=== PATIENT | female | born 1940 | race Caucasian/White ===

== ENCOUNTER 2016-03-11 17:58 | Emergency (ER) | payer MEDICARE ==
[2016-03-11] MEDS ORDERED: cefTRIAXone 1 GM VIAL IM STA (19:15)
[2016-03-11] MEDS ORDERED: LIDOCAINE-MPF 1% 5 ML VIAL ONE (19:28)
[2016-03-11] MEDS ORDERED: cefTRIAXone 1 GM VIAL ONE (19:28)
== END 2016-03-11 20:11 | disposition home or self-care (01) ==
DX: N30.01 Acute cystitis with hematuria (principal); K59.00 Constipation, unspecified; Z79.82 Long term (current) use of aspirin; Z87.891 Personal history of nicotine dependence

== ENCOUNTER 2016-08-31 12:38 | Outpatient (CLI) | payer MEDICARE ==
--- NOTE | 2016-08-31 14:23 | MRI Report ---
EXAM: MRI LUMBAR SPINE WITHOUT CONTRAST EXAM DATE: 08/31/2016 01:22 PM. CLINICAL HISTORY: Fecal incontinence and fecal smearing, low back pain. COMPARISON: MRI of the lumbar spine 11/03/2007. TECHNIQUE: Multiplanar, multisequence T1-weighted and fluid-sensitive sequences of the lumbar spine f rom T12 to S1 without contrast. Other: None. FINDINGS: Spinal Cord: The conus terminates at T12-L1. The conus medullaris and cauda equina are unremarkable. Alignment: Normal. No scoliosis or spondylolisthesis. Bone Marrow: Five [id number] lumbar vertebral bodies are assumed. There is an old moderate, 50%, compression fracture of the T12 superior endplate. Associated superior endplate Schmorl's node formation is seen. No bone marrow or paraspinous edema is seen. This is new compared to the prior MRI. Mild, 2 mm, retropulsion of the T12 superior endplate is seen. No underlyi ng canal stenosis. Disk Levels/Facets: T11-T12: Evaluated on sagittal series. Minimal broad-based dorsal protrusion of the T12 superior endp late is seen without extrusion. Effacement of the ventral thecal sac is noted. No stenosis. T12-L1: Unremarkable on sagittal series. L1-L2: Unremarkable on sagittal series. L2-L3: Unremarkable. Mild degenerative facet changes noted with thickening of the ligamentum flavum. Minimal circumferential disk bulge is seen. This has progressed compared to prior MRI. L3-L4: Mild degenerative facet changes seen with thickening of the ligamentum flavum. Minimal circumf erential disk bulge is seen. Effacement of the thecal sac is noted, most prominent dorsally. Mild sherrill tral canal stenosis is seen. This has progressed compared to the prior MRI. L4-L5: Mild degenerative facet changes seen with thickening of the ligamentum flavum. This is unchang ed. Moderate loss of disk space height is seen. Patchy diskogenic endplate irregularity is noted. Sma ll old L4 inferior endplate Schmorl's node formation is seen. This has progressed compared to the ashley or study. Mild circumferential disk bulge is seen. Tiny central dorsal disk protrusion is seen. Disk protrusion is smaller compared to prior study. Effacement of the thecal sac and descending L5 nerve r oots is seen. Mild canal stenosis. Moderate right lateral recess stenosis. Mild left lateral recess s tenosis. L5-S1: Moderate loss of disk space height is seen. Minimal dorsal with mild lateral and ventral circu mferential bulge of disk/osteophyte complex is seen. Tiny left paracentral disk protrusion is seen. M inimal effacement and posterior displacement of the descending left S1 nerve root is seen. This is no t significantly changed. Musculature: Mild fatty atrophy of posterior paraspinous musculature is seen in the lower lumbar and upper sacral region. Other: The partially visualized retroperitoneum is unremarkable. IMPRESSION: 1. Old moderate compression fracture of the T12 vertebral body superior endplate. This is new compare d to the prior MRI. Minimal retropulsion of the superior endplate is seen. No underlying canal stenos is is seen. 2. Spondylosis throughout the mid and lower lumbar spine. 3. L2-L3: Mild degenerative disk and facet change. No stenosis. 4. L3-L4: Mild degenerative disk and facet change. Mild canal stenosis. This has progressed. 5. L4-L5: Mild to moderate degenerative disk and facet change. Small central dorsal disk protrusion. Interval resolution of previously noted left paracentral disk protrusion. Mild canal stenosis, improv ed. Right moderate lateral recess stenosis, not significantly changed. Mild left lateral recess steno sis, improved. 6. L5-S1: Moderate degenerative disk change. Minimal effacement of the descending left S1 nerve root is seen without stenosis. This is unchanged. Comment: The following findings are so common in adults without low back pain that while we report th eir presence, they must be interpreted with caution and in the context of the clinical situation. (Re maynor Arellano et al, Spine 2001) Prevalence of findings in patients without low back pain: Disk degeneration (any evidence): 92% Disk desiccation/T2 signal loss: 83% Disk height loss: 56% Disk bulge: 64% Disk protrusion: 32% Annular tear/high intensity zone: 38% [facility] Referring Provider Line: [phone] SITE ID: [id number]
== END 2016-08-31 12:39 | disposition home or self-care (01) ==
LOC: DI 12:38
PROVIDERS: ATTEND Family Medicine
DX: M47.896 Other spondylosis, lumbar region (principal); M51.36 Other intervertebral disc degeneration, lumbar region; M51.26 Other intervertebral disc displacement, lumbar region; M51.27 Other intervertebral disc displacement, lumbosacral region
CPT/HCPCS: 72148

== ENCOUNTER 2016-09-21 11:33 | Outpatient (CLI) | payer MEDICARE | END 2016-09-21 11:34 | disposition critical access hospital (66) | LOC: EMS 11:33 | PROVIDERS: ATTEND Surgery | DX: R00.2 Palpitations (principal); R42 Dizziness and giddiness | CPT/HCPCS: A0425; A0429 ==

== ENCOUNTER 2016-09-21 11:53 | Emergency (ER) | payer MEDICARE ==
[2016-09-21 12:48] LABS: BILIRUBIN,URINE NEGATIVE (NEGATIVE); PH,URINE 7.5 PH (5.0-7.5)
[2016-09-21 12:51] LABS: UA CHARGE (STRIP ONLY) YES; UR CULTURE IF IND NOT INDICATED
--- NOTE | 2016-09-21 12:53 | ED Physician Documentation ---
PD HPI CHEST PAIN - Stated complaint Stated Complaint: SOA - Chief complaint Chief Complaint: Cardiac - History obtained from History obtained from: Patient - History of Present Illness Timing - onset: Other (75-year-old woman with chronic intermittent palpitations , she was going to her doctor today for chronic constipation and on the way there felt fast heartbeat in her throat and became presyncopal. When this was relayed at her doctor's office she was referred here for further evaluation and treatment. This happens every couple of months and she has had 2 Holter monitors which were negative per her and an echocardiogram in another state that was negative per her. There is no associated chest pain. 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 - Present Medications Home Medications: Ambulatory Orders Medication Instructions Recorded Confirmed LORazepam [Ativan] 0.5 mg PO BID PRN 07/27/14 09/21/16 Vit A/Vit C/Vit E/Zinc/Copper 1 cap PO BID 07/27/14 09/21/16 [Preservision Areds Softgel] Bupropion HCl [Wellbutrin Sr] 200 mg PO BID 02/20/15 09/21/16 Cholecalciferol (Vitamin D3) 1,000 unit PO DAILY 02/20/15 09/21/16 [Vitamin D3] Cyanocobalamin (Vitamin B-12) 1,000 mcg PO DAILY 02/20/15 09/21/16 [B-12] Krill/Om-3/Dha/Epa/Phospho/Ast 1 cap PO DAILY 02/20/15 09/21/16 [Krill Oil 1,000 mg Softgel] - Allergies Allergies/Adverse Reactions: Allergies Allergy/AdvReac Type Severity Reaction Status Date / Time fluoxetine HCl * AdvReac Unknown Verified 09/21/16 11:58 [From Prozac] mirtazapine [From Remeron] AdvReac Unknown Verified 09/21/16 11:58 - Social History Does the pt smoke?: No Smoking Status: Former smoker Does the pt drink ETOH?: Yes Does the pt have substance abuse?: No PD ED PE NORMAL - Vitals Vital signs reviewed: Yes - General General: Alert and oriented X 3, No acute distress - Neck Neck: Supple, no meningeal sign, No bony TTP - Cardiac Cardiac: RRR, No murmur - Respiratory Respiratory: No respiratory distress, Clear bilaterally - Abdomen Abdomen: Non tender - Extremities Extremities: No edema, No calf tenderness / cord - Neuro Neuro: Alert and oriented X 3, Normal speech - Psych Psych: Normal mood, Normal affect Results - Vitals Vitals: Vital Signs - 24 hr 09/21/16 11:54 Temperature 36.5 C Heart Rate 79 Respiratory 16 Rate Blood Pressure 167/89 H O2 Saturation 98 Oxygen O2 Source Room air - EKG (time done) 1205 Rate: Rate (enter#) (73) Rhythm: NSR Intervals: Prolonged DC QRS: Low voltage Ischemia: Normal ST segments - Labs Labs: Laboratory Tests 09/21/16 09/21/16 09/21/16 12:40 12:45 12:45 WBC 4.8 RBC 3.70 L Hgb 12.6 Hct 36.1 L MCV 97.6 MCH 34.0 H MCHC 34.8 RDW 13.7 Plt Count 241 MPV 7.5 L Neut # 3.1 Lymph # 1.0 L [place] # 0.5 Eos # 0.1 Baso # 0.0 Absolute Nucleated RBC 0.00 Nucleated RBCs 0.0 Sodium 137 Potassium 4.2 Chloride 102 Carbon Dioxide 27 Anion Gap 8.0 BUN 14 Creatinine 0.8 Estimated GFR (MDRD) 70 L Glucose 83 Calcium 9.4 Magnesium 2.3 Troponin I Urine Color YELLOW Urine Clarity CLEAR Urine pH 7.5 Ur Specific [place] <=1.005 Urine Protein NEGATIVE Urine Glucose (UA) NEGATIVE Urine Ketones NEGATIVE Urine Occult Blood NEGATIVE Urine Nitrite NEGATIVE Urine Bilirubin NEGATIVE Urine Urobilinogen 0.2 (NORMAL) Ur Leukocyte Esterase NEGATIVE Ur Microscopic Review NOT INDICATED Urine Culture Comments NOT INDICATED 09/21/16 12:45 WBC RBC Hgb Hct MCV MCH MCHC RDW Plt Count MPV Neut # Lymph # [place] # Eos # Baso # Absolute Nucleated RBC Nucleated RBCs Sodium Potassium Chloride Carbon Dioxide Anion Gap BUN Creatinine Estimated GFR (MDRD) Glucose Calcium Magnesium Troponin I < 0.04 Urine Color Urine Clarity Urine pH Ur Specific [place] Urine Protein Urine Glucose (UA) Urine Ketones Urine Occult Blood Urine Nitrite Urine Bilirubin Urine Urobilinogen Ur Leukocyte Esterase Ur Microscopic Review Urine Culture Comments PD MEDICAL DECISION MAKING - ED course ED course: 75-year-old woman with a exacerbation of chronic palpitations with negative workup here. Follow-up with cardiology was advised. Departure - Departure Disposition: 01 Home, Self Care Clinical Impression: Palpitations Condition: Good Record reviewed to determine appropriate education?: Yes Instructions: Heart Palpitations Comments: Discuss follow-up With a train control electronic technician with your primary care physician. Return if worse. Your blood pressure was elevated today on check into the emergency department. This does not mean that you have hypertension, it is a common phenomenon to come to the emergency department and have elevated blood pressure. I recommend that she see her primary care physician within the week to have it rechecked when you are feeling better.
[2016-09-21 12:54] LABS: BASOPHILS % (AUTO) 0.5 %; EOSINOPHILS # (AUTO) 0.1 10^3/uL (0.0-0.7); EOSINOPHILS % (AUTO) 2.2 %; HCT - HEMATOCRIT 36.1 % (37.0-47.0); HGB - HEMOGLOBIN 12.6 g/dL (12.0-16.0); LYMPHOCYTES % (AUTO) 21.6 %; MEAN CORPUSCULAR HGB CONC 34.8 g/dL (32.0-36.0); MEAN CORPUSCULAR VOLUME 97.6 fL (81.0-99.0); MEAN PLATELET VOLUME 7.5 fL (7.9-10.8); MONOCYTES # (AUTO) 0.5 10^3/uL (0.0-1.0); MONOCYTES % (AUTO) 10.7 %; NEUTROPHILS # (AUTO) 3.1 10^3/uL (1.5-6.6); RED CELL DISTRIBUTION WIDTH 13.7 % (12.0-15.0); UNCORRECTED WHITE BLOOD COUNT 4.8 x10^3/uL; WHITE BLOOD COUNT 4.8 x10^3/uL (4.8-10.8)
[2016-09-21 13:02] LABS: CALCIUM 9.4 mg/dL (8.5-10.3); CREATININE 0.8 mg/dL (0.4-1.0); MAGNESIUM 2.3 mg/dL (1.7-2.8); POTASSIUM 4.2 mmol/L (3.5-5.0)
[2016-09-21 13:34] VITALS: BP 158/75
== END 2016-09-21 14:05 | disposition home or self-care (01) ==
LOC: EDUNIT# → ED 11:53
DX: R00.2 Palpitations (principal); R03.0 Elevated blood-pressure reading, without diagnosis of hypertension; J45.909 Unspecified asthma, uncomplicated; K21.9 Gastro-esophageal reflux disease without esophagitis; M19.90 Unspecified osteoarthritis, unspecified site; Z87.891 Personal history of nicotine dependence
CPT/HCPCS: 36415; 80048; 81001; 81003; 83735; 84484; 85025; 87086; 93005; 99283; 99284

== ENCOUNTER 2016-10-08 10:05 | Outpatient (CLI) | payer MEDICARE ==
--- NOTE | 2016-10-08 13:13 | DEXA Report ---
DEXA SCAN, 10/08/2016 CLINICAL INDICATION: Postmenopausal. TECHNIQUE: Dual energy x-ray absorptiometry (DXA) was performed on a [employer] system. Regions measured are the AP spine, femoral neck, and, if needed, forearm. COMPARISON: None. In accordance with the International Society for Clinical Densitometry (ISCD) guidelines, data from previous exams may be reanalyzed using current recommendations and techniques. This is done to allow a more accurate basis for comparison with the current study. FINDINGS: The data for the lumbar spine is as follows: REGION BMD (g/cm/cm) T-SCORE Z-SCORE L1 0.704 -3.5 -1.2 L2 0.828 -3.1 -0.7 L3 0.889 -2.6 -0.2 L4 0.983 -1.8 0.6 TOTAL 0.865 -2.6 -0.3 NOTE: All evaluable vertebrae are used for classification. The data for the hip is as follows: REGION BMD (g/cm/cm) T-SCORE Z-SCORE Neck 0.747 -2.1 0.3 TOTAL 0.665 -2.7 -0.4 NOTE: The femoral neck or total proximal femur, whichever is lowest, is used for classification. IMPRESSION: THE WHO CLASSIFICATION BASED ON THE INTERNATIONAL REFERENCE STANDARD IS OSTEOPOROSIS. THE FRACTURE RISK IS HIGH. RECOMMENDATION: Patients with diagnosis of osteoporosis or osteopenia should have regular bone mineral density assessment. For those eligible for Medicare, routine testing is allowed once every 2 years. Testing frequency can be increased for patients who have rapidly progressing disease or for those who are receiving medical therapy to restore bone mass. COMMENT: World Health Organization (WHO) definitions for osteoporosis and osteopenia: NORMAL BMD: T-score at -1.0 or higher, fracture risk is low. OSTEOPENIA BMD: T-score between -1.0 and -2.5, fracture risk is increased. OSTEOPOROSIS BMD: T-score at -2.5 or lower, fracture risk high. National Osteoporosis Foundation recommends: 1. Obtain adequate dietary calcium (at least 1200 mg per day) and vitamin D (400 -800 international units per day). 2. Participate, as appropriate, in regular weightbearing and muscle- strengthening exercise. 3. Avoid tobacco use and reduce alcohol and caffeine intake. 4. For more detailed information see the website at www.NOF.org. MTDD
== END 2016-10-08 10:06 | disposition home or self-care (01) ==
LOC: DI 10:05
PROVIDERS: ATTEND Family Medicine
DX: Z78.0 Asymptomatic menopausal state (principal); M81.0 Age-related osteoporosis without current pathological fracture
CPT/HCPCS: 77080

== ENCOUNTER 2016-11-04 11:15 | Outpatient (CLI) | payer MEDICARE | END 2016-11-04 11:16 | disposition home or self-care (01) | LOC: LAB.WCP 11:15 | PROVIDERS: ATTEND Family Medicine | DX: R31.9 Hematuria, unspecified (principal) | CPT/HCPCS: 87086 ==

== ENCOUNTER 2017-10-25 12:37 | Emergency (ER) | payer MEDICARE ==
[2017-10-25 12:58] VITALS: BP 148/78
--- NOTE | 2017-10-25 14:17 | ED Physician Documentation ---
PD HPI HEADACHE - Stated complaint Stated Complaint: HEADACHE - Chief complaint Chief Complaint: Neuro - History obtained from History obtained from: Patient - History of Present Illness Timing - onset: How many months ago (had fall with striking left top of head a month ago. Intermittent headaches since. Worse last night/early this morning.) Timing - onset during: Rest, Light activity Timing - details: Abrupt onset Worst headache ever?: No: Worst headache ever? Quality: Throbbing, Aching Associated symptoms: Nausea. No: Fever, Stiff neck, Vomiting, Weakness, Vision changes Worsened by: Other (palpation) Review of Systems Constitutional: denies: Fever, Chills Nose: denies: Rhinorrhea / runny nose, Congestion Throat: denies: Sore throat Cardiac: denies: Chest pain / pressure Respiratory: denies: Dyspnea, Cough GI: reports: Nausea. 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 - Present Medications Home Medications: Ambulatory Orders Medication Instructions Recorded Confirmed LORazepam [Ativan] 0.5 mg PO BID PRN 07/27/14 10/25/17 Vit A/Vit C/Vit E/Zinc/Copper 1 cap PO BID 07/27/14 10/25/17 [Preservision Areds Softgel] Bupropion HCl [Wellbutrin Sr] 200 mg PO BID 02/20/15 10/25/17 Cholecalciferol (Vitamin D3) 1,000 unit PO DAILY 02/20/15 10/25/17 [Vitamin D3] Cyanocobalamin (Vitamin B-12) 1,000 mcg PO DAILY 02/20/15 10/25/17 [B-12] Krill/Om-3/Dha/Epa/Phospho/Ast 1 cap PO DAILY 02/20/15 10/25/17 [Krill Oil 1,000 mg Softgel] Dexamethasone [Decadron] 4 mg PO DAILY #7 tablet 10/25/17 Tramadol HCl 50 mg PO Q6H PRN #15 tablet 10/25/17 - Allergies Allergies/Adverse Reactions: Allergies Allergy/AdvReac Type Severity Reaction Status Date / Time fluoxetine HCl * AdvReac Unknown Verified 10/25/17 12:58 [From Prozac] mirtazapine [From Remeron] AdvReac Unknown Verified 10/25/17 12:58 - Social History Does the pt smoke?: No Smoking Status: Former smoker Does the pt drink ETOH?: Yes Does the pt have substance abuse?: No PD ED PE NORMAL - Vitals Vital signs reviewed: Yes - General General: Alert and oriented X 3, No acute distress, Well developed/nourished - HEENT HEENT: Atraumatic (there is small area of some scar tissue and firmness at left upper occi), PERRL, EOMI, Pharynx benign - Neck Neck: Supple, no meningeal sign, No bony TTP, No adenopathy - Cardiac Cardiac: RRR, No murmur - Respiratory Respiratory: Clear bilaterally - Abdomen Abdomen: Normal bowel sounds, Soft, Non tender, Non distended - Female Female : Deferred - Rectal Rectal: Deferred - Back Back: No CVA TTP - Derm Derm: Normal color, Warm and dry - Extremities Extremities: No tenderness to palpate, Normal ROM s pain, No edema, No calf tenderness / cord - Neuro Neuro: Alert and oriented X 3, No motor deficit, Normal speech Results - Vitals Vitals: Vital Signs - 24 hr 10/25/17 12:53 Temperature 36.8 C Heart Rate 76 Respiratory 16 Rate Blood Pressure 148/78 H O2 Saturation 99 Oxygen O2 Source Room air - Rads (name of study) head CT Radiology: Prelim report reviewed (no acute ICH. ) PD MEDICAL DECISION MAKING - ED course Complexity details: reviewed results (head CT normal), re-evaluated patient, considered differential (has had some intermittent headaches since injury month ago. 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.), d/w patient - Sepsis Event Vital Signs: Vital Signs - 24 hr 10/25/17 12:53 Temperature 36.8 C Heart Rate 76 Respiratory 16 Rate Blood Pressure 148/78 H O2 Saturation 99 Oxygen O2 Source Room air Departure - Departure Disposition: 01 Home, Self Care Clinical Impression: Post-concussion headache Condition: Stable Record reviewed to determine appropriate education?: Yes Instructions: ED Cephalgia Unspecified Follow-Up: Jose F Townsend DO [Primary Care Provider] - Prescriptions: Dexamethasone [Decadron] 4 mg PO DAILY #7 tablet Tramadol HCl 50 mg PO Q6H PRN #15 tablet PRN Reason: Pain Comments: Your head CT appears normal without any signs of bleeding, tumors, swelling. One can be getting headaches after head injury for a while. Continue the Tylenol 2-3 times a day if needed for headaches. We can try some anti- inflammatories to see if that helps. Decadron daily for the next week. Add Tramadol if needed for worse headache. Follow-up with your primary care in the next several days to week. Call for an appointment. Discharge Date/Time: 10/25/17 16:25
--- NOTE | 2017-10-25 15:25 | CT Report ---
Procedure Date: 10/25/2017 Accession Number: [id number] / [id number] Procedure: CT - Head W/O CPT Code: FULL RESULT: EXAM: CT HEAD EXAM DATE: 10/25/2017 03:03 PM. CLINICAL HISTORY: Increased headache last night; head injury early September. Intermittent left-sided headache since trauma. COMPARISON: 08/19/2008. TECHNIQUE: Multiaxial CT images were obtained from the foramen magnum to the vertex. Reformats: Coronal. IV contrast: None. In accordance with CT protocol optimization, one or more of the following dose reduction techniques were utilized for this exam: automated exposure control, adjustment of mA and/or KV based on patient size, or use of iterative reconstructive technique. FINDINGS: Parenchyma: No intraparenchymal hemorrhage. No evidence of mass, midline shift, or CT findings of acute infarction. Perez-white differentiation is distinct. Diffuse chronic microangiopathic white matter changes are evident. Extraaxial Spaces: Normal for age. No subdural or epidural collections identified. Ventricles: The ventricles and cortical sulci are enlarged, consistent with age-related tissue loss. Sinuses and orbits: Imaged paranasal sinuses, orbits, and mastoids show no significant abnormality. Bones: No evidence of fracture or calvarial defect. Other: None. IMPRESSION: Generalized age-related cortical atrophic changes without evidence of acute intracranial abnormality. [facility]
[2017-10-25] MEDS ORDERED: DEXAMETHASONE 10 MG/ML VIAL PO STA (16:04)
[2017-10-25] MEDS ORDERED: ACETAMINOPHEN 325 MG TABLET PO STA (16:04)
[2017-10-25] MEDS ORDERED: CHERRY SYRUP 10 ML UDC PO ONE (16:23)
== END 2017-10-25 16:25 | disposition home or self-care (01) ==
LOC: ED 12:37
DX: R51 Headache (principal); F07.81 Postconcussional syndrome; Z87.891 Personal history of nicotine dependence; Z91.81 History of falling
CPT/HCPCS: 70450; 99283; 99284; A9270

== ENCOUNTER 2017-11-26 12:01 | Outpatient (CLI) | payer MEDICARE ==
[2017-11-26] MEDS ORDERED: IOPAMIDOL-300 100 ML VIAL ONE (12:12)
[2017-11-26 12:25] LABS: CREATININE 0.8 mg/dL (0.4-1.0)
[2017-11-26] MEDS ORDERED: IOPAMIDOL-300 100 ML VIAL IVP ONE (12:47)
--- NOTE | 2017-11-26 18:14 | CT Report ---
Reason: LUNG NODULE Procedure Date: 11/26/2017 Accession Number: [id number] / [id number] Procedure: CT - Chest W/ CPT Code: FULL RESULT: EXAM: CT CHEST EXAM DATE: 11/26/2017 12:56 PM. CLINICAL HISTORY: LUNG NODULE. COMPARISONS: None. TECHNIQUE: Routine helical CT imaging was performed through the chest. IV contrast: 100 cc Isovue-300. Reconstructions: Coronal and sagittal. In accordance with CT protocol optimization, one or more of the following dose reduction techniques were utilized for this exam: automated exposure control, adjustment of mA and/or KV based on patient size, or use of iterative reconstructive technique. FINDINGS: Lungs/Pleura: There is mild, upper lobe predominant subpleural reticulation. Mild upper lung architectural distortion. No evidence of significant bronchiectasis. Mild focal right pleural thickening measuring 0.4 x 0.8 cm (image 21 series 4). There is a 0.4 cm pulmonary nodule within the right lower lobe (image 36). There is a 0.8 cm pulmonary nodule within the left lower lobe (image 45 series 4). There is no evidence of acute infiltrate. No effusion. No central airway abnormalities. No pneumothorax. Mediastinum: Normal. No adenopathy or masses. The heart and great vessels are normal. Bones: Unremarkable. Visualized Abdomen: Unremarkable. Other: None. IMPRESSION: 1. There are two discrete lung nodules in the chest. The larger of the two measures 0.8 cm in diameter. There is also a focus of right pleural thickening measuring up to 0.8 cm in diameter. Interval chest CT follow-up in 6 months could be used to demonstrate stability of these densities. 2. There is subpleural reticulation with some mild associated upper lung architectural distortion. This could represent fibrosis. 3. No acute pulmonary process. 4. Normal heart size. No enlarged thoracic lymph nodes. Recommend follow-up of the described nodule(s) according to the following guidelines: Fleischner Society Recommendations 2017 MacMahon et al. Radiology 2017 Solid Nodules-Low Risk Patients: <6 mm (single or multiple) - No routine follow-up* 6-8 mm (single) -CT at 6-12 months, then consider CT at 18-24 months 6-8mm (multiple) -CT at 3-6 months, then consider at CT 18-24 months >8 mm (single) -Consider CT, PET/CT, or tissue sampling at 3 months >8 mm (multiple) -CT at 3-6 months, then consider CT at 18-24 months Solid Nodules-High Risk Patients: <6 mm (single or multiple) -Optional CT at 12 months* 6-8 mm (single) -CT at 6-12 months, then CT at 18-24 months 6-8mm (multiple) -CT at 3-6 months, then CT at 18-24 months >8 mm (single) -Consider CT, PET/CT, or tissue sampling at 3 months >8 mm (multiple) -CT at 3-6 months, then at 18-24 months *Nodules < 6mm do not require routine follow-up, but suspicious nodule morphology, upper lobe location, or both may warrant 12 month follow-up Subsolid nodules: <6 mm (single, GG or part solid) -No routine follow-up >=6 mm (single GG) -CT at 6-12 months to confirm, then CT q2 years until 5 years >=6 mm (single part solid) -CT at 3-6 months to confirm, if unchanged and solid <6mm, annual CT for 5 years <6 mm (multiple GG or part solid) -CT at 3-6 months. If stable, consider CT at 2 and 4 years >=6 mm (multiple GG or part solid) -CT at 3-6 months. Subsequent management based on most suspicious nodule(s). Consider follow-up at 2 and 4 years for certain suspicious nodules <6mm. If solid component develops or growth, consider resection. [facility]
== END 2017-11-26 12:02 | disposition home or self-care (01) ==
LOC: DI 12:01
PROVIDERS: ATTEND Family Medicine
DX: R91.8 Other nonspecific abnormal finding of lung field (principal)
CPT/HCPCS: 36415; 71260; 82565; Q9967

== ENCOUNTER 2018-02-16 17:12 | Outpatient (CLI) | payer MEDICARE ==
--- NOTE | 2018-02-17 09:34 | XRAY Report ---
Reason: LOW BACK PAIN Procedure Date: 02/16/2018 Accession Number: [id number] / [id number] Procedure: XR - Lumbar Spine 2 View CPT Code: FULL RESULT: EXAM: LUMBOSACRAL SPINE RADIOGRAPHY EXAM DATE: 02/16/2018 05:58 PM. CLINICAL HISTORY: Low back pain. COMPARISONS: None. TECHNIQUE: 3 views. FINDINGS: Alignment: Thoracolumbar dextroconvex scoliosis centered about T12-L1, felt to be due to compression fracture. No listhesis. Bones: There is a compression fracture of T12 with approximately 50% loss of height. Disks: Predominantly relatively mild multilevel disk height loss. Facets: Moderate lower lumbar spinal facet arthropathy as well as less pronounced increased facet changes in the upper lumbar spine, possibly due to the scoliosis. Sacroiliac Joints: Unremarkable. Soft Tissues: Normal. The visualized bowel gas pattern is normal. IMPRESSION: T12 compression fracture with resultant scoliosis. [facility]
== END 2018-02-16 17:13 | disposition home or self-care (01) ==
LOC: DI 17:12
PROVIDERS: ATTEND Family Medicine
DX: M41.85 Other forms of scoliosis, thoracolumbar region (principal); M48.54XA Collapsed vertebra, not elsewhere classified, thoracic region, initial encounter for fracture
CPT/HCPCS: 72100

== ENCOUNTER 2018-03-06 10:11 | Outpatient (CLI) | payer MEDICARE ==
--- NOTE | 2018-03-06 12:21 | MRI Report ---
Reason: HEADACHE, COLLAPSED VERTEBRA THORACIC REGION Procedure Date: 03/06/2018 Accession Number: [id number] / [id number] Procedure: MRI - Brain W/O CPT Code: FULL RESULT: EXAM: MRI BRAIN WITHOUT CONTRAST EXAM DATE: 03/06/2018 11:30 AM. CLINICAL HISTORY: Headache. COMPARISON: BRAIN/IACS 10/31/2010 12:37 PM. TECHNIQUE: Multiplanar, multisequence T1-weighted and fluid-sensitive MR sequences of the brain were performed. Sequences optimized for routine evaluation. Other: None. IV Contrast: None. FINDINGS: No acute abnormality. No evidence for acute or recent ischemic infarct or hemorrhage. No mass effect, midline shift or abnormal subdural fluid collection. Again seen are findings of extensive cerebral white matter disease. There may be mild progression of white matter disease in the right frontal lobe region. Again seen are stable findings of small chronic bilateral cerebellar infarcts. Similar pattern of generalized cerebral volume loss. No hydrocephalus, ventriculomegaly is more likely from central greater than peripheral atrophy. No mass effect, midline shift or abnormal subdural fluid collection. No acute appearing sinus or mastoid disease. No focal pathologic appearing marrow signal changes in the skull or clivus. The major arterial skull base flow voids are present. IMPRESSION: 1. No acute abnormality. 2. No evidence for developing space-occupying mass, mass effect or midline shift allowing for the inherent limitations of noncontrast imaging technique. 3. Again seen are findings of moderate to severe multifocal cerebral white matter disease, the usual gamut of white matter conditions may be considered including multifocal postischemic and/or postinflammatory gliosis which may be mildly progressive in the right frontal region. 4. Stable very small cerebellar infarcts. RADIA
--- NOTE | 2018-03-06 13:12 | MRI Report ---
Reason: HEADACHE, COLLAPSED VERTEBRA THORACIC REGION Procedure Date: 03/06/2018 Accession Number: [id number] / [id number] Procedure: MRI - Thoracic Spine W/O CPT Code: FULL RESULT: EXAM: MRI THORACIC SPINE WITHOUT CONTRAST EXAM DATE: 03/06/2018 11:46 AM. CLINICAL HISTORY: 77-year-old female. HEADACHE, COLLAPSED VERTEBRA THORACIC REGION. COMPARISONS: Radiograph lumbar spine 02/16/2018, MR lumbar spine 08/31/2016 TECHNIQUE: Multiplanar, multisequence T1-weighted and fluid-sensitive sequences of the thoracic spine from C7 to L1 without contrast. Other: None. FINDINGS: Spinal Canal: No signal abnormality in the visualized spinal cord. Alignment: Grade 1 anterolisthesis C7 on T1 measuring 3 mm. Slightly exaggerated thoracic kyphosis. Bone Marrow: No evidence of acute fracture. Redemonstration chronic compression fracture involving the superior endplate of T12 with height loss of 41%. No significant retropulsion. Mild multilevel degenerative changes including disk height loss and desiccation and mild disk bulges, with no significant central canal or foraminal narrowing at any thoracic level. Musculature: Normal. No edema or fatty atrophy. Other: There is an 8 mm T2 hyperintense lesion within the posterior right hepatic lobe (series 901 image 5). In addition there is a similar 8 mm lesion within the left lobe (series 901 image 6). These lesions are nonspecific, may represent hepatic cysts or hemangiomata. Consider follow-up liver imaging. The visualized mediastinum, and abdominal cavity are otherwise unremarkable. There is a suggested 9 mm pulmonary nodule left lower lobe (series 901 image 17). IMPRESSION: 1. No evidence of acute fracture. 2. Redemonstration chronic compression fracture involving the superior endplate of T12 with height loss of 41%. No significant retropulsion. 3. Mild multilevel degenerative changes including disk height loss and desiccation and mild disk bulges, with no significant central canal or foraminal narrowing at any thoracic level. 4. There is an 8 mm T2 hyperintense lesion within the posterior right hepatic lobe (series 901 image 5). In addition there is a similar 8 mm lesion within the left lobe (series 901 image 6). These lesions are nonspecific, may represent hepatic cysts or hemangiomata. Consider follow-up liver imaging. 5. There is a suggested 9 mm pulmonary nodule left lower lobe (series 901 image 17). The evaluation on this thoracic spine MRI is incomplete. Recommend dedicated chest imaging. RADIA
== END 2018-03-06 10:12 | disposition home or self-care (01) ==
LOC: DI 10:11
PROVIDERS: ATTEND Family Medicine
DX: I63.89 Other cerebral infarction (principal); R90.82 White matter disease, unspecified; M48.54XA Collapsed vertebra, not elsewhere classified, thoracic region, initial encounter for fracture; M51.34 Other intervertebral disc degeneration, thoracic region; M43.13 Spondylolisthesis, cervicothoracic region; M47.9 Spondylosis, unspecified; K76.9 Liver disease, unspecified
CPT/HCPCS: 70551; 72146

== ENCOUNTER 2018-04-20 09:37 | Outpatient (CLI) | payer MEDICARE ==
[2018-04-20 14:17] LABS: BUN - BLOOD UREA NITROGEN 15 mg/dL (6-20); CALCIUM 9.3 mg/dL (8.5-10.3); CARBON DIOXIDE - CO2 31 mmol/L (21-32); CHLORIDE 91 mmol/L (101-111); CHOL/HDL RATIO 2.7 (<4.4); CHOLESTEROL 244 mg/dL; CREATININE 0.7 mg/dL (0.4-1.0); GFR - MDRD 81 (>89); GLUCOSE 85 mg/dL (70-100); HDL CHOLESTEROL 92 mg/dL; LDL CHOLESTEROL,CALCULATED 142 mg/dL; LDL/HDL RATIO 1.5 (<4.4); SODIUM 134 mmol/L (135-145); VLDL CHOLESTEROL 10 mg/dL
== END 2018-04-20 23:59 | disposition home or self-care (01) ==
LOC: LAB.WCP 09:37
PROVIDERS: ATTEND Family Medicine
DX: I10 Essential (primary) hypertension (principal); E78.5 Hyperlipidemia, unspecified
CPT/HCPCS: 36415; 80048; 80061; 83721

== ENCOUNTER 2018-09-27 10:41 | Outpatient (CLI) | payer MEDICARE ==
--- NOTE | 2018-09-28 14:14 | CT Report ---
Reason: COUGH, LUNG NODULE Procedure Date: 09/27/2018 Accession Number: [id number] / [id number] Procedure: CT - CHEST WO CPT Code: FULL RESULT: EXAM: CT CHEST EXAM DATE: 09/27/2018 11:40 AM. CLINICAL HISTORY: COUGH, LUNG NODULE. COMPARISONS: CHEST W/ 11/26/2017 12:43 PM THORACIC SPINE W/O 03/06/2018 11:05 AM. TECHNIQUE: Routine helical CT imaging was performed through the chest. IV contrast: None. Reconstructions: Coronal and sagittal. In accordance with CT protocol optimization, one or more of the following dose reduction techniques were utilized for this exam: automated exposure control, adjustment of mA and/or KV based on patient size, or use of iterative reconstructive technique. FINDINGS: Lungs/Pleura: Image 23 series 4, stable right peripheral 12 x 6 mm subpleural nodular focus when measured at the same level. No new pleural based nodularity. Stable 4 mm right lower lobe pulmonary nodule on image 39 series 4 and stable 8 x 6 mm nodule in the left lower lobe on image 49 series 4. No enlarging or suspicious nodules. No pneumonia or effusion. Mediastinum: Mild left anterior descending artery coronary calcifications. Heart size within normal limits. No aortic aneurysm. No bulky adenopathy on this noncontrast study. Bones: Chronic T12 compression deformity which appears stable. No aggressive appearing bone lesion identified. Visualized Abdomen: Scattered probable hepatic cysts without definite acute abnormality seen in the upper abdomen.. Other: None. IMPRESSION: Stable chest compared to 11/26/2017 with stable right lower and left lower lobe pulmonary nodules as well as right midlung peripheral subpleural thickening. Stability favors a benign process. As per previous recommendations, chest CT at an additional 12 months could be considered. RADIA
== END 2018-09-27 10:42 | disposition home or self-care (01) ==
LOC: DI 10:41
PROVIDERS: ATTEND Family Medicine
DX: R91.8 Other nonspecific abnormal finding of lung field (principal); R05 Cough
CPT/HCPCS: 71250

== ENCOUNTER 2018-09-29 15:38 | Outpatient (CLI) | payer MEDICARE ==
--- NOTE | 2018-09-30 23:06 | XRAY Report ---
Reason: ACUTE PAIN L FOOT METATARSALS AND OSTEOPOROSIS Procedure Date: 09/29/2018 Accession Number: [id number] / [id number] Procedure: XR - Foot 3 View LT CPT Code: FULL RESULT: EXAM: LEFT FOOT RADIOGRAPHY EXAM DATE: 09/29/2018 03:57 PM. CLINICAL HISTORY: ACUTE PAIN L FOOT METATARSALS AND OSTEOPOROSIS. COMPARISON: None. TECHNIQUE: 3 views. FINDINGS: Bones: Diffuse osteopenia. No acute displaced fractures. Joints: No subluxations. Soft Tissues: Unremarkable. IMPRESSION: No acute fracture or subluxation. Diffuse osteopenia. RADIA
== END 2018-09-29 15:39 | disposition home or self-care (01) ==
LOC: DI 15:38
PROVIDERS: ATTEND Podiatrist
DX: M85.872 Other specified disorders of bone density and structure, left ankle and foot (principal)

== ENCOUNTER 2018-10-20 11:15 | Outpatient (CLI) | payer MEDICARE ==
--- NOTE | 2018-10-24 15:26 | DEXA Report ---
Reason: BONE DISORDER Procedure Date: 10/20/2018 Accession Number: [id number] / [id number] Procedure: DEX - Dexa Spine and/or Hip CPT Code: FULL RESULT: EXAM: Dexa Spine and/or Hip DATE: 10/20/2018 11:45 AM CLINICAL HISTORY: BONE DISORDER TECHNIQUE: Dual energy x-ray absorptiometry (DXA) was performed on a [employer] System. Regions measured are the AP Spine, femoral neck, and if needed forearm. COMPARISON: 10/08/2016 In accordance with the International Society for Clinical Densitometry (ISCD) guidelines, data from previous exams may be reanalyzed using current recommendations and techniques. This is done to allow a more accurate basis for comparison with the current study. FINDINGS: The data for the lumbar spine is as follows: BMD (g/cm/cm) T-SCORE Z-SCORE REGION L1 0.734 -3.3 -0.9 L2 0.889 -2.6 -0.2 L3 0.905 -2.5 -0.1 L4 0.986 -1.8 0.6 TOTAL 0.887 -2.4 0.0 NOTE: All evaluable vertebrae are used for classification The data for the hip is as follows: BMD (g/cm/cm) T-SCORE Z-SCORE REGION Neck 0.722 -2.3 0.2 TOTAL 0.660 -2.8 -0.4 NOTE: The femoral neck or total proximal femur, whichever is lowest, is used for classification. DXA RESULTS SUMMARY: Spine SCAN DATE AGE BMD CHANGE VS CHANGE VS PREVIOUS PREVIOUS % 8/20[birth year]2018 [age] 0[age]887 0.035* 4.1* 10/08/2016 [age] 0[age]852 * Denotes significant change at the 95% confidence level. Denotes dissimilar scan types or analysis methods. DXA RESULTS SUMMARY: Hip SCAN DATE AGE BMD CHANGE VS CHANGE VS PREVIOUS PREVIOUS % [birth year]2018 [age] 0.660 -0.005 -0.8 10/11/2016 [age] 0[age]665 * Denotes significant change at the 95% confidence level. Denotes dissimilar scan types or analysis methods. IMPRESSION: THE WHO CLASSIFICATION BASED ON THE INTERNATIONAL REFERENCE STANDARD IS OSTEOPOROSIS. THE FRACTURE RISK IS HIGH. RECOMMENDATION: Patients with diagnosis of osteoporosis or osteopenia should have regular bone mineral density assessment. For those eligible for Medicare, routine testing is allowed once every 2 years. Testing frequency can be increased for patients who have rapidly progressing disease or for those who are receiving medical therapy to restore bone mass. COMMENT: World Health Organization (WHO) definitions for osteoporosis and osteopenia: NORMAL BMD: T-score at -1.0 or higher, fracture risk is low OSTEOPENIA BMD: T-score between -1.0 and -2.5, fracture risk is increased. OSTEOPOROSIS BMD: T-score at -2.5 or lower, fracture risk is high. National Osteoporosis Foundation recommends: 1. Obtain adequate dietary calcium (at least 1200 mg per day) and vitamin D (400-800 international units per day). 2. Participate, as appropriate, in regular weightbearing and muscle-strengthening exercise. 3. Avoid tobacco use and reduce alcohol and caffeine intake. 4. For more detailed information see the website at www.NOF.org.
== END 2018-10-20 11:16 | disposition home or self-care (01) ==
LOC: DI 11:15
PROVIDERS: ATTEND Family Medicine
DX: M81.0 Age-related osteoporosis without current pathological fracture (principal)
CPT/HCPCS: 77080

== ENCOUNTER 2018-11-01 10:21 | Outpatient (CLI) | payer MEDICARE ==
--- NOTE | 2018-11-01 16:29 | XRAY Report ---
Reason: OTHER DYSPHAGIA Procedure Date: 11/01/2018 Accession Number: [id number] / [id number] Procedure: FL - Esophogram CPT Code: FULL RESULT: EXAM: BARIUM ESOPHAGRAM EXAM DATE: 11/01/2018 11:20 AM. CLINICAL HISTORY: Other dysphagia. COMPARISONS: None. TECHNIQUE: Routine double contrast esophagram. Fluoroscopy Time: 1.7 minutes. Number of Images: 57. FINDINGS: Swallowing Mechanism: Delayed initiation with relatively ineffective swallowing mechanism requiring multiple attempts without aspiration or penetration visualized, evaluation for aspiration is limited with this exam. Esophageal Motility: Mildly ineffective stripping wave without shelly esophageal spasm. Mucosa: Normal. No ulcerations or masses. Gastroesophageal Junction: No hernia or stricture. A small amount of spontaneous reflux is noted. Other: None. IMPRESSION: Note is made of a small amount of spontaneous reflux and ineffective stripping wave. Recommendation: If clinically indicated, consideration for speech pathology evaluation potentially with modified barium swallow examination given patient's reported history of postnasal drip and symptoms of aspiration. RADIA
== END 2018-11-01 10:22 | disposition home or self-care (01) ==
LOC: DI 10:21
PROVIDERS: ATTEND Otolaryngology
DX: R13.19 Other dysphagia (principal); K21.9 Gastro-esophageal reflux disease without esophagitis
CPT/HCPCS: 74220

== ENCOUNTER 2018-11-27 10:23 | Outpatient (CLI) | payer MEDICARE ==
--- NOTE | 2018-11-27 14:05 | Ultrasound Report ---
Reason: BILAT CLAUDICATION Procedure Date: 11/27/2018 Accession Number: [id number] / [id number] Procedure: US - Duplex Lwr Ext Arterial Bilat CPT Code: FULL RESULT: EXAM: BILATERAL LOWER EXTREMITY ARTERIAL DOPPLER ULTRASOUND EXAM DATE: 11/27/2018 11:35 AM. CLINICAL HISTORY: Bilateral claudication. COMPARISON: None. TECHNIQUE: Real-time sonographic vascular imaging was performed by the pharmacy order entry technician, utilizing color-flow, Doppler flow, and spectral analysis. Multiple manufacturer representative static images were saved for review. FINDINGS: Grayscale Doppler, color Doppler and spectral Doppler of the bilateral lower extremities was performed. The bilateral common femoral, SFA, profunda femoris, popliteal, anterior tibial, posterior tibial, peroneal and dorsalis pedis arteries are patent. There are brisk systolic arterial upstrokes throughout both lower extremity arterial systems with biphasic or triphasic waveforms as described below. The following peak systemic velocities are obtained in centimeters per second. Right Leg: BREAK OUT WORKER: PSV 85 cm/sec. Biphasic waveform. PSFA: PSV 93 cm/sec. Biphasic waveform. MSFA: PSV 67 cm/sec. Biphasic waveform. DSFA: PSV 49 cm/sec. Biphasic waveform. PFA: PSV 56 cm/sec. Biphasic waveform. POP: PSV 48 cm/sec. Biphasic waveform. HASMUKH: PSV 68 cm/sec. Biphasic waveform. DEVOPS ARCHITECT: PSV 101 cm/sec. Biphasic waveform. PER: PSV 62 cm/sec. Biphasic waveform. DPA: PSV 76 cm/sec. Biphasic waveform. Left Leg: BREAK OUT WORKER: PSV 99 cm/sec. Triphasic waveform. PSFA: PSV 90 cm/sec. Triphasic waveform. MSFA: PSV 70 cm/sec. Triphasic waveform. DSFA: PSV 41 cm/sec. Triphasic waveform. PFA: PSV 56 cm/sec. Triphasic waveform. POP: PSV 51 cm/sec. Biphasic waveform. HASMUKH: PSV 54 cm/sec. Biphasic waveform. DEVOPS ARCHITECT: PSV 110 cm/sec. Biphasic waveform. PER: PSV 52 cm/sec. Biphasic waveform. DPA: PSV 26 cm/sec. Biphasic waveform. IMPRESSION: Preserved three-vessel inflow to the ankle bilaterally. RADIA
== END 2018-11-27 10:24 | disposition home or self-care (01) ==
LOC: DI 10:23
PROVIDERS: ATTEND Family Medicine
DX: I73.9 Peripheral vascular disease, unspecified (principal)
CPT/HCPCS: 93925

== ENCOUNTER 2019-01-01 13:28 | Outpatient (CLI) | payer MEDICARE ==
[~2019-01-01 13:28] MED LIST: ALBUTEROL NEB 2.5 MG/3 ML INH ONE
== END 2019-01-01 13:29 | disposition home or self-care (01) ==
LOC: RT 13:28
PROVIDERS: ATTEND Family Medicine
DX: R05 Cough (principal)
CPT/HCPCS: 94010; 94729

== ENCOUNTER 2019-12-05 08:00 | Outpatient (CLI) | payer MEDICARE | END 2019-12-05 23:59 | disposition home or self-care (01) | LOC: LAB.WCP 08:00 | PROVIDERS: ATTEND Family Medicine | DX: R31.9 Hematuria, unspecified (principal); M35.3 Polymyalgia rheumatica | CPT/HCPCS: 36415; 85651; 86140 ==

== ENCOUNTER 2019-12-13 08:00 | Outpatient (CLI) | payer MEDICARE ==
[2019-12-13 19:08] LABS: BILIRUBIN,URINE NEGATIVE (NEGATIVE); GLUCOSE, URINE (UA) NEGATIVE (NEGATIVE); KETONES,URINE (UA) NEGATIVE (NEGATIVE); LEUKOCYTE ESTERASE, URINE TRACE (NEGATIVE); NITRITE,URINE NEGATIVE (NEGATIVE); OCCULT BLOOD,URINE NEGATIVE (NEGATIVE); PH,URINE 7.5 PH (5.0-7.5); PROTEIN,URINE NEGATIVE (NEGATIVE); UROBILINOGEN,URINE 0.2 (NORMAL) E.U./dL (NORMAL)
[2019-12-13 19:11] LABS: CLARITY,URINE CLEAR (CLEAR)
[2019-12-13 19:25] LABS: BACTERIA,URINE Moderate /HPF (None Seen); RBC,URINE None Seen /HPF (0-5); SQUAMOUS EPITHELIAL CELL,UR NONE SEEN (<= Few)
== END 2019-12-13 23:59 | disposition home or self-care (01) ==
LOC: LAB.R 08:00
PROVIDERS: ATTEND Family Medicine
DX: R31.9 Hematuria, unspecified (principal)
CPT/HCPCS: 81001; 87077; 87086; 87181

== ENCOUNTER 2020-03-19 14:40 | Outpatient (CLI) | payer MEDICARE | END 2020-03-19 23:59 | LOC: LAB.R 14:40 | PROVIDERS: ATTEND Physician Assistant Medical | DX: R30.0 Dysuria (principal) | CPT/HCPCS: 87086; 87181 ==

== ENCOUNTER 2020-03-21 16:49 | Inpatient (IN) | payer MEDICARE ==
[2020-03-21 17:27] LABS: BASOPHILS % (AUTO) 0.2 %; EOSINOPHILS % (AUTO) 0.3 %; LYMPHOCYTES % (AUTO) 2.7 %; NEUTROPHILS % (AUTO) 90.2 %; RED CELL DISTRIBUTION WIDTH 11.9 % (12.0-15.0)
[2020-03-21 17:31] LABS: HGB - HEMOGLOBIN 11.4 g/dL (12.0-16.0); MEAN CORPUSCULAR HEMOGLOBIN 33.6 pg (27.0-31.0); MEAN CORPUSCULAR HGB CONC 32.8 g/dL (32.0-36.0); MEAN CORPUSCULAR VOLUME 102.7 fL (81.0-99.0); MEAN PLATELET VOLUME 8.7 fL (7.9-10.8); PLT - PLATELET COUNT 184 10^3/uL (130-450); RED BLOOD COUNT 3.39 10^6/uL (4.20-5.40); WHITE BLOOD COUNT 12.4 x10^3/uL (4.8-10.8)
[2020-03-21 17:38] LABS: ALBUMIN 3.9 g/dL (3.2-5.5); ALBUMIN/GLOBULIN RATIO 1.6 (1.0-2.2); BILIRUBIN,TOTAL 1.4 mg/dL (0.2-1.0); CREATININE 0.9 mg/dL (0.4-1.0); TOTAL PROTEIN 6.4 g/dL (6.7-8.2)
[2020-03-21 17:45] LABS: ABNORMAL LYMPHS % (MANUAL) 0 %
[2020-03-21 18:08] LABS: GLUCOSE, URINE (UA) 250 mg/dL (NEGATIVE); KETONES,URINE (UA) 15 mg/dL (NEGATIVE); LEUKOCYTE ESTERASE, URINE MODERATE (NEGATIVE); NITRITE,URINE POSITIVE (NEGATIVE); OCCULT BLOOD,URINE MODERATE (NEGATIVE)
[2020-03-21 18:12] LABS: BAND NEUTROPHILS % (MANUAL) 1 %; BASOPHILS # (MANUAL) 0.2 10^3/uL (0-0.1); BASOPHILS % (MANUAL) 2 %; EOSINOPHILS # (MANUAL) 0.1 10^3/uL (0-0.7); LYMPHOCYTES # (MANUAL) 0.5 10^3/uL (1.5-3.5); LYMPHOCYTES % (MANUAL) 4 %
[2020-03-21 18:13] LABS: DIFFERENTIAL COMMENT MANUAL DIFFERENTIAL; PLATELET ESTIMATE, MANUAL NORMAL (130-450,000) (NORMAL); PLATELET MORPHOLOGY NORMAL APPEARANCE (NORMAL); RBC MORPHOLOGY (MULTIPLE) NORMAL APPEARANCE (NORMAL)
[2020-03-21 18:19] LABS: BILIRUBIN,URINE NEGATIVE (NEGATIVE); CLARITY,URINE SL. CLOUDY (CLEAR); ICTOTEST,URINE NEGATIVE
[2020-03-21 18:22] LABS: BACTERIA,URINE Moderate /HPF (None Seen); SQUAMOUS EPITHELIAL CELL,UR RARE Squamous (<= Few)
[2020-03-21] MEDS ORDERED: SODIUM CHLORIDE 0.9% 1,000 ML IV STA ×3 (18:26→19:46)
[2020-03-21] MEDS ORDERED: cefTRIAXone 1 GM VIAL IVP STA (18:26)
--- NOTE | 2020-03-21 18:27 | ED Physician Documentation ---
History of Present Illness - Stated complaint Stated Complaint: FEMALE - Chief complaint Chief Complaint: Abd Pain - History obtained from History obtained from: Patient - History of Present Illness Timing: How many days ago (3) Pain level max: 5 Pain level now: 3 - Additonal information Additional information: Patient is an 79-year-old female who presents to the emergency department with 3 days of dysuria. Having right flank pain as well. Started having fevers at home today. Chills. Nausea but no vomiting. Nothing makes it better or worse. She was seen at the walk-in clinic 2 days ago and started on ciprofloxacin 250 mg p.o. twice daily. She states she is not improving. She is on Pyridium as well. 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 - Present Medications Home Medications: Ambulatory Orders Medication Instructions Recorded Confirmed LORazepam [Ativan] 0.5 mg PO BID PRN 07/27/14 10/25/17 Vit A/Vit C/Vit E/Zinc/Copper 1 cap PO BID 07/27/14 10/25/17 [Preservision Areds Softgel] Cholecalciferol (Vitamin D3) 1,000 unit PO DAILY 02/20/15 10/25/17 [Vitamin D3] Cyanocobalamin (Vitamin B-12) 1,000 mcg PO DAILY 02/20/15 10/25/17 [B-12] Krill/Om-3/Dha/Epa/Phospho/Ast 1 cap PO DAILY 02/20/15 10/25/17 [Krill Oil 1,000 mg Softgel] buPROPion HCl [Wellbutrin Sr] 200 mg PO BID 02/20/15 10/25/17 Tramadol HCl 50 mg PO Q6H PRN #15 tablet 10/25/17 dexAMETHasone [Decadron] 4 mg PO DAILY #7 tablet 10/25/17 - Allergies Allergies/Adverse Reactions: Allergies Allergy/AdvReac Type Severity Reaction Status Date / Time fluoxetine HCl * AdvReac Unknown Verified 03/21/20 17:06 [From Prozac] mirtazapine [From Remeron] AdvReac Unknown Verified 03/21/20 17:06 - Social History Does the pt smoke?: No Smoking Status: Former smoker Does the pt drink ETOH?: Yes Does the pt have substance abuse?: No PD ED PE NORMAL - Vitals Vital signs reviewed: Yes - General General: Alert and oriented X 3, No acute distress, Well developed/nourished - HEENT HEENT: PERRL, Moist mucous membranes - Neck Neck: Supple, no meningeal sign - Cardiac Cardiac: RRR, Strong equal pulses - Respiratory Respiratory: No respiratory distress, Clear bilaterally - Abdomen Abdomen: Soft, Non tender, Non distended - Back Back: Other (Right CVA tenderness) - Derm Derm: Warm and dry - Extremities Extremities: No edema - Neuro Neuro: Alert and oriented X 3 - Psych Psych: Normal mood, Normal affect Results - Vitals Vitals: Vital Signs - 24 hr 03/21/20 03/21/20 16:59 19:23 Temperature 37.8 C Heart Rate 116 H 115 H Respiratory 17 18 Rate Blood Pressure 131/53 H 119/67 O2 Saturation 95 99 Oxygen O2 Source Room air - Labs Labs: Laboratory Tests 03/21/20 03/21/20 03/21/20 17:19 17:19 17:55 WBC 12.4 H RBC 3.39 L Hgb 11.4 L Hct 34.8 L MCV 102.7 H MCH 33.6 H MCHC 32.8 RDW 11.9 L Plt Count 184 MPV 8.7 Neut # (Auto) Not Reportable Lymph # (Auto) Not Reportable Ceiba # (Auto) Not Reportable Eos # (Auto) Not Reportable Baso # (Auto) Not Reportable Absolute Nucleated RBC Not Reportable Total Counted 100 Band Neuts % (Manual) 1 Abnorm Lymph % (Manual) 0 Nucleated RBC % Not Reportable Neutrophils # (Manual) 10.5 H Lymphocytes # (Manual) 0.5 L Monocytes # (Manual) 1.0 Eosinophils # (Manual) 0.1 Basophils # (Manual) 0.2 H Differential Comment MANUAL DIFFERENTIAL Platelet Estimate NORMAL (130-450,000) Platelet Morphology NORMAL APPEARANCE RBC Morph Micro Appear NORMAL APPEARANCE Sodium 129 L Potassium 3.5 Chloride 94 L Carbon Dioxide 24 Anion Gap 11.0 BUN 16 Creatinine 0.9 Estimated GFR (MDRD) 60 L Glucose 125 H Lactic Acid Calcium 9.0 Total Bilirubin 1.4 H AST 30 ALT 24 Alkaline Phosphatase 86 Total Protein 6.4 L Albumin 3.9 Globulin 2.5 Albumin/Globulin Ratio 1.6 Lipase 25 Urine Color ORANGE Urine Clarity SL. CLOUDY Urine pH 5.0 Ur Specific [place] 1.020 Urine Protein Urine Glucose (UA) 250 H Urine Ketones 15 H Urine Occult Blood MODERATE H Urine Nitrite POSITIVE H Urine Bilirubin NEGATIVE Urine Urobilinogen Ur Leukocyte Esterase MODERATE H Urine RBC 6-10 H Urine WBC >25 H Ur Squamous Epith Cells RARE Squamous Urine Bacteria Moderate H Ur Microscopic Review INDICATED Urine Culture Comments INDICATED 03/21/20 18:17 WBC RBC Hgb Hct MCV MCH MCHC RDW Plt Count MPV Neut # (Auto) Lymph # (Auto) [place] # (Auto) Eos # (Auto) Baso # (Auto) Absolute Nucleated RBC Total Counted Band Neuts % (Manual) Abnorm Lymph % (Manual) Nucleated RBC % Neutrophils # (Manual) Lymphocytes # (Manual) Monocytes # (Manual) Eosinophils # (Manual) Basophils # (Manual) Differential Comment Platelet Estimate Platelet Morphology RBC Morph Micro Appear Sodium Potassium Chloride Carbon Dioxide Anion Gap BUN Creatinine Estimated GFR (MDRD) Glucose Lactic Acid 1.1 Calcium Total Bilirubin AST ALT Alkaline Phosphatase Total Protein Albumin Globulin Albumin/Globulin Ratio Lipase Urine Color Urine Clarity Urine pH Ur Specific [place] Urine Protein Urine Glucose (UA) Urine Ketones Urine Occult Blood Urine Nitrite Urine Bilirubin Urine Urobilinogen Ur Leukocyte Esterase Urine RBC Urine WBC Ur Squamous Epith Cells Urine Bacteria Ur Microscopic Review Urine Culture Comments - Rads (name of study) CT abdomen pelvis Radiology: Prelim report reviewed, EMP read contemporaneously, See rad report PD MEDICAL DECISION MAKING - ED course Complexity details: reviewed old records, reviewed results, re-evaluated patient, considered differential, d/w patient, d/w framing consultant ED course: 79-year-old female with what appears to be pyelonephritis. She has failed outpatient antibiotics on ciprofloxacin. Given Rocephin IV. Her urine culture is pansensitive E. coli. She has leukocytosis. Temperature 37.8 upon arrival. Blood cultures drawn. Lactate drawn. Lactate is normal. Given IV fluids. Discussed the case with Dr. Selby, hospitalist who accepts This document was made in part using voice recognition software. While efforts are made to proofread this document, sound alike and grammatical errors may occur. 1. Mildly dilated right ureter with mucosal hyperenhancement. These findings can be seen either in the setting of recent stone passage or ascending urinary tract infection. 2. Right nephric fat stranding and subtle striated nephrogram on the right are suggestive of pyelonephritis. Departure - Departure Disposition: 66 [facility] DC/Xfer Clinical Impression: Pyelonephritis, Tachycardia Fever Qualifiers: Fever type: unspecified Qualified Code(s): R50.9 - Fever, unspecified Sepsis Qualifiers: Sepsis type: Escherichia coli Sepsis acute organ dysfunction status: unspecified Qualified Code(s): A41.51 - Sepsis due to Escherichia coli [E. coli] Condition: Stable Discharge Date/Time: 03/21/20 21:10
[2020-03-21] MEDS ORDERED: IOVERSOL 320 100 ML VIAL IVP ONE ×2 (18:41→18:42)
[2020-03-21] MEDS ORDERED: IOVERSOL 320 50 ML VIAL PO ONE (18:43)
[2020-03-21] MEDS ORDERED: ACETAMINOPHEN 325 MG TABLET PO STA (19:14)
--- NOTE | 2020-03-21 19:18 | CT Report ---
PROCEDURE: Abdomen/Pelvis W INDICATIONS: Right flank pain, fever, UTI CONTRAST: IV CONTRAST: Optiray 320 ml: 100 PO CONTRAST: *NO PO CONTRAST TECHNIQUE: After the administration of intravenous contrast, 5 mm thick sections acquired from the diaphragms to the symphysis. 5 mm thick coronal and sagittal reformats were acquired. For radiation dose reducti on, the following was used: automated exposure control, adjustment of mA and/or kV according to lisset ent size. COMPARISON: None FINDINGS: Image quality: Excellent. ABDOMEN: Lung bases: Lung bases are clear. Heart size is normal. Solid organs: Mild right hydroureteronephrosis with mucosal hyperenhancement of the right ureter almo st the entire length. Slightly hyperdense appearance of the right UVJ, nonspecific. Right perinephric fat stranding with suggestion of subtle striated right nephrogram is suggestive of pyelonephritis. N ormal left nephrogram and left collecting system. Unremarkable CT appearance of the liver, gallbladde r, spleen, pancreas, and adrenal glands. Peritoneum and bowel: Bowel loops demonstrate normal wall thickness and caliber. No free fluid or a ir. Nodes and vessels: No retroperitoneal or mesenteric adenopathy by size criteria. Aorta and inferior vena cava are normal in size. Miscellaneous: No ventral hernias. PELVIS: Genitourinary: Bladder wall thickness is normal. Miscellaneous: No inguinal hernias or adenopathy. Bones: No suspicious bony lesions. No vertebral body compression fractures. IMPRESSION: 1. Mildly dilated right ureter with mucosal hyperenhancement. These findings can be seen either in th e setting of recent stone passage or ascending urinary tract infection. 2. Right nephric fat stranding and subtle striated nephrogram on the right are suggestive of pyelonep hritis. Reviewed by: Bakari Cifuentes MD on 03/21/2020 7:17 PM PST Approved by: Bakari Cifuentes MD on 03/21/2020 7:17 PM PST Station ID: [id number]
[2020-03-21] MEDS ORDERED: ONDANSETRON 4 MG/2 ML VIAL IVP PRN (20:08)
[2020-03-21 21:23] LABS: C. PNEUMONIAE- RESP PCR PANEL NOT DETECTED
[2020-03-21] MEDS: FAMOTIDINE 20 MG TABLET PO SCH (21:35)
[2020-03-21] MEDS: D5NS W/20 MEQ KCL 1,000 ML IV SCH (21:35)
--- NOTE | 2020-03-22 03:07 | HISTORY & PHYSICAL EXAMINATION ---
DATE OF SERVICE: 03/21/2020 Physician: Elizabeth Selby MD HISTORY OF PRESENT ILLNESS: This is an 79-year-old white female with a history of anxiety on lorazepam and Wellbutrin, takes supplements and vitamins. The patient was seen here two days ago in the ER for complaints of UTI and had an abnormal urinalysis showing UTI and she was sent home on Cipro. She returned back feeling worse with rigors and fever at home and workup today in the ER shows pyelonephritis by CT scan, elevated white blood count of 13, but normal lactic acid level. She is being admitted to inpatient status for failure of outpatient antibiotics in treating a UTI. The urine culture from the previous day's evaluation is already growing E. coli and sensitivities are pending. PAST MEDICAL HISTORY 1. Asthma. 2. Chronic constipation. 3. Macular degeneration. 4. Anxiety. 5. DJD. 6. Previous recurrent UTIs MEDICATIONS 1. Lorazepam 0.5 mg b.i.d. p.r.n. 2. Tramadol 50 mg q.6h. hours p.r.n. 3. Wellbutrin 200 mg b.i.d. 4. Krill oil. 5. Vitamin B12. 6. Vitamin D3. 7. PreserVision soft gels. FAMILY HISTORY: Not contributory with any diseases. SOCIAL HISTORY: The patient is an ex-smoker, she drinks alcohol, but denies any excessive use. REVIEW OF SYSTEMS: A comprehensive review of systems was done and the pertinent positives are listed, the rest are negative. In reviewing her [facility] records, she has had multiple prior UTIs and mostly grows E. coli, but also recently had growth of Enterococcus faecalis and remotely had Pseudomonas in the urine. PHYSICAL EXAMINATION GENERAL: Thin white female. She is in no distress. VITAL SIGNS: Blood pressure 114/68, heart rate 93-116 in sinus rhythm. She was afebrile since coming to the hospital, room air saturation 95%. HEENT: Reveals moist oral mucosa. NECK: No JVD. CHEST: Clear. HEART: Normal heart sounds without murmur. ABDOMEN: Soft, nontender. Positive tenderness on the right lateral-mid abdomen. EXTREMITIES: Legs: No edema. NEUROLOGIC: Grossly intact. LABORATORY DATA: Sodium 129, potassium 3.5, BUN 16, creatinine 0.9. Lactic acid 1.1. Normal liver tests and lipase. White blood count 12.4 with a left shift, hemoglobin 11.4 with MCV 102, platelet count 184. Urinalysis today showed high glucose, high ketones, moderate occult blood, positive nitrites, moderate leukocyte esterase, high white blood cells and moderate bacteria with only rare squamous cells; therefore, culture is indicated. COVID swab is negative. IMAGING: Abdomen and pelvis CT showed dilation of the right ureter and possibly a stone had recently passed there and there is mild right-sided hydronephrosis with stranding. IMPRESSION/DIAGNOSES 1. Sepsis by virtue of tachycardia, elevated white count and infection is her source. 2. Pyelonephritis. 3. E. coli urinary tract infection 4. Hyponatremia. PLAN: Admit the patient to inpatient status. Begin IV fluids. Rocephin was started in the ER and we will continue with this daily for UTI. Await the E. coli sensitivities. Continue with her p.r.n. medication for anxiety. CODE STATUS: FULL CODE. DEEP VENOUS THROMBOSIS PROPHYLAXIS: Pharmacotherapy. ATTESTATION: Patient is expected to be discharged or transferred to another facility within 96 hours: Yes. cc: Jose F Townsend DO TD: 03/22/2020 00:01 MTDD
[2020-03-22] MEDS: SODIUM CHLORIDE FLUSH 0.9% 10 ML SYRINGE IVP SCH ×3 (04:20→16:45)
[2020-03-22] MEDS: ACETAMINOPHEN 325 MG TABLET PO PRN ×2 (04:20→10:34)
[2020-03-22 05:23] LABS: BASOPHILS % (AUTO) 0.3 %; EOSINOPHILS % (AUTO) 1.5 %; HGB - HEMOGLOBIN 9.9 g/dL (12.0-16.0); MEAN CORPUSCULAR HEMOGLOBIN 34.9 pg (27.0-31.0); MEAN CORPUSCULAR HGB CONC 33.4 g/dL (32.0-36.0); MEAN CORPUSCULAR VOLUME 104.2 fL (81.0-99.0); MEAN PLATELET VOLUME 9.1 fL (7.9-10.8); MONOCYTES % (AUTO) 6.9 %; NEUTROPHILS % (AUTO) 88.4 %; PLT - PLATELET COUNT 156 10^3/uL (130-450); RED BLOOD COUNT 2.84 10^6/uL (4.20-5.40); RED CELL DISTRIBUTION WIDTH 11.9 % (12.0-15.0)
[2020-03-22 05:31] LABS: ABNORMAL LYMPHS % (MANUAL) 0 %
[2020-03-22 05:34] LABS: CALCIUM 7.8 mg/dL (8.5-10.3); CREATININE 0.8 mg/dL (0.4-1.0); MAGNESIUM 1.9 mg/dL (1.7-2.8); PHOSPHORUS 1.6 mg/dL (2.5-4.6)
[2020-03-22 06:53] LABS: BAND NEUTROPHILS % (MANUAL) 7 %; DIFFERENTIAL COMMENT MANUAL DIFFERENTIAL; LYMPHOCYTES # (MANUAL) 0.9 10^3/uL (1.5-3.5); LYMPHOCYTES % (MANUAL) 5 %; MONOCYTES # (MANUAL) 0.2 10^3/uL (0.0-1.0); PLATELET ESTIMATE, MANUAL NORMAL (130-450,000) (NORMAL); PLATELET MORPHOLOGY NORMAL APPEARANCE (NORMAL); RBC MORPHOLOGY (MULTIPLE) NORMAL APPEARANCE (NORMAL)
[2020-03-22] MEDS: D5NS W/20 MEQ KCL 1,000 ML IV SCH ×3 (07:16→21:07)
[2020-03-22] MEDS: FAMOTIDINE 20 MG TABLET PO SCH ×2 (08:56→21:07)
[2020-03-22] MEDS ORDERED: cefTRIAXone 1 GM in SODIUM CHLORIDE 0.9% MINIBAG 100 ML IV SCH (09:00)
--- NOTE | 2020-03-22 12:29 | PHARMACY PROGRESS NOTE ---
- Best Possible Medication History Admit Date and Time: 03/21/202007 Processed by: Pharmacy Medication History completed: Yes Secondary Source(s): Physician records, Pharmacy records, Insurance records As the person ultimately responsible for medication therapy, providers are able to order a medication from an existing home medication list in [facility] via the "Reconcile Routine" prior to Confirmation of that medication by telecommunications support. Such practice is discouraged except when the physician, in their clinical judgment, deems that a medical need exists for a medication without regard to previous use.
[2020-03-22] MEDS: MEROPENEM 1 GM in SODIUM CHLORIDE 0.9% MINIBAG 100 ML IV SCH ×2 (12:32→21:07)
[2020-03-22] MEDS: PHENAZOPYRIDINE 100 MG TABLET PO SCH (16:45)
--- NOTE | 2020-03-22 20:52 | PROVIDER PROGRESS NOTE ---
Assessment/Plan - Problem List (1) Sepsis Qualifiers: Sepsis type: Escherichia coli Sepsis acute organ dysfunction status: unspecified Qualified Code(s): A41.51 - Sepsis due to Escherichia coli [E. coli] Assessment/Plan: Improving with heart rate now normalizing to 70 and no fever. The white count still is elevated, went from 12 to 17 today. (2) E coli bacteremia Assessment/Plan: 3 of 3 blood cultures have grown E. coli. The sensitivities are back from the urine E. coli when she was in the ER before this admission and she is growing ESBL producing E. coli. Rocephin has been stopped and in its place she is on Meropenem. She will need at least a 2-week course of antibiotics. Will redraw blood cultures to assure they are now negative. (3) Infection due to extended spectrum beta lactamase (ESBL) producing Enterobacteriaceae bacterium Assessment/Plan: As above in #2. Contact precautions have been ordered. (4) E. coli UTI Assessment/Plan: As above. This patient has had recurrent UTIs. There may be a need for consideration for urology appointment after discharge (5) Pyelonephritis due to Escherichia coli Assessment/Plan: More pelvic pressure pain. A 3-day course of Pyridium has been started (6) Hyponatremia Assessment/Plan: Her presenting serum sodium was 129 and IV saline was started. Today sodium improved to 134. Continue with IV fluids. Monitor BMP daily (7) Hypokalemia Assessment/Plan: Replace with K riders. Follow BMP daily (8) Hx of essential hypertension Assessment/Plan: Her blood pressure is still "soft" Continue to hold her home dose of Losartan (9) Headache Assessment/Plan: This is not acute, she gets headaches intermittently over the last 3 years, after she had fallen and hit her head. We will give as needed pain meds. [facility] also requests a lidocaine patch for neck pain and back pain which I will order. (10) Anxiety and depression Assessment/Plan: Appreciate that pharmacy has reconciled all her meds. Will resume her home dose of bupropion and the as needed Ativan. - Current Meds Current Meds: Current Medications Generic Name Dose Route Start Last Admin Trade Name Freq PRN Reason Stop Dose Admin Acetaminophen 650 mg 03/21/20 20:08 03/22/20 10:34 Acetaminophen 325 Mg Tablet PO 650 mg Q4HR PRN Administration Pain or Fever > 38C (100.4F) Famotidine 20 mg 03/21/20 21:00 03/22/20 08:56 Famotidine 20 Mg Tablet PO 20 mg BID ZAYRA Administration Potassium Chloride/Dextrose/Sod Cl 1,000 mls @ 150 mls/hr 03/21/20 21:00 03/22/20 14:58 IV 150 mls/hr .Q6H40M ZAYRA Administration Meropenem 1 gm/ Sodium 100 mls @ 200 mls/hr 03/22/20 11:00 03/22/20 13:05 Chloride IV Infused BID ZAYRA Infusion Phenazopyridine HCl 100 mg 03/22/20 17:00 03/22/20 16:45 Phenazopyridine 100 Mg Tablet PO 03/25/20 12:01 100 mg TIDWM ZAYRA Administration Sodium Chloride 10 ml 03/22/20 01:00 03/22/20 16:45 Sodium Chloride Flush 0.9% 10 Ml Syringe IVP 10 ml 0100,0900,1700 ZAYRA Administration - Lab Result Fish Bone Diagrams: 03/22/20 04:26 03/22/20 04:26 - Additional Planning My Orders: My Active Orders 03/21/20 20:08 Activity Orders [RC] Q2HR IO [RC] IOSHIFT Initiate Bowel Care Protocol [RC] .protocol Initiate Line Care Protocol [RC] QSHIFT Initiate Personal Care Protoco [RC] .protocol Telemetry- [RC] Q4HR Vital Signs [RC] Q4HR Acetaminophen [Tylenol] 650 mg PO Q4HR PRN Ondansetron Inj [Zofran Inj] 4 mg IVP Q6HR PRN Sodium Chloride Flush 0.9% [Normal Saline Flush 0.9%] 10 ml IVP PRN PRN Code Status [OTHERS] Routine Condition of Patient [OTHERS] Routine DVT Prophylaxis [OTHERS] Routine 03/21/20 20:13 IV Insert [RC] .ONCE 03/21/20 20:14 Initiate Line Care Protocol [RC] QSHIFT SCDs [RC] QSHIFT 03/21/20 21:00 D5ns W/20 Meq KCl 1,000 ml IV 150 mls/hr Famotidine [Pepcid] 20 mg PO BID 03/22/20 01:00 Sodium Chloride Flush 0.9% [Normal Saline Flush 0.9%] 10 ml IVP 0100,0900,1700 03/22/20 Breakfast DIET [Soft Mechanical Diet] [DIET] 03/23/20 05:00 BMP - BASIC METABOLIC PANEL [CHEM] DAILYLAB CBC - COMP BLD CT W/AUTO DIFF [HEME] DAILYLAB 03/24/20 05:00 BMP - BASIC METABOLIC PANEL [CHEM] DAILYLAB CBC - COMP BLD CT W/AUTO DIFF [HEME] DAILYLAB Subjective - Subjective Patient Reports: Headache (Has a sharp intermittent headache and ear pain bilaterally which she gets occasionally over the past 3 years), Other (Noticeable dysuria) Objective Vital Signs: Vital Signs - 24 hr 03/21/20 03/22/20 03/22/20 21:19 01:00 04:20 Temperature 36.8 C 36.9 C Heart Rate [ 110 H 104 H 113 H Monitoring electrodes] Respiratory 18 18 18 Rate Blood Pressure 114/68 111/58 L 102/59 L [Right Brachial artery] O2 Saturation 100 95 93 03/22/20 03/22/20 03/22/20 08:51 13:00 16:58 Temperature 37.3 C 36.6 C 37.4 C Heart Rate [ 90 90 92 Monitoring electrodes] Respiratory 20 18 20 Rate Blood Pressure 104/56 L 116/65 112/68 [Right Brachial artery] O2 Saturation 94 98 96 03/22/20 19:49 Temperature 37.4 C Heart Rate [ 70 Monitoring electrodes] Respiratory 18 Rate Blood Pressure 116/63 [Right Brachial artery] O2 Saturation 95 Oxygen O2 Source Room air I&O (Last 24 Hrs): Intake and Output Totals x24h 03/20/20 03/21/20 03/22/20 23:59 23:59 23:59 Intake Total 1999 4605 Output Total 50 Balance 1999 4555 General: Alert, Oriented x3 HEENT: Mucous membr. moist/pink Neck: Supple Neuro: Alert, Non Focal Cardiovascular: Regular rate Respiratory: No respiratory distress Abdomen: Soft Extremities: No edema - Results Results: Laboratory Results WBC 17.0 x10^3/uL (4.8-10.8) H 03/22/20 04:26 RBC 2.84 10^6/uL (4.20-5.40) L 03/22/20 04:26 Hgb 9.9 g/dL (12.0-16.0) L 03/22/20 04:26 Hct 29.6 % (37.0-47.0) L 03/22/20 04:26 MCV 104.2 fL (81.0-99.0) H 03/22/20 04:26 MCH 34.9 pg (27.0-31.0) H 03/22/20 04:26 MCHC 33.4 g/dL (32.0-36.0) 03/22/20 04:26 RDW 11.9 % (12.0-15.0) L 03/22/20 04:26 Plt Count 156 10^3/uL (130-450) 03/22/20 04:26 MPV 9.1 fL (7.9-10.8) 03/22/20 04:26 Neut # (Auto) Not Reportable 03/22/20 04:26 Lymph # (Auto) Not Reportable 03/22/20 04:26 [place] # (Auto) Not Reportable 03/22/20 04:26 Eos # (Auto) Not Reportable 03/22/20 04:26 Baso # (Auto) Not Reportable 03/22/20 04:26 Absolute Nucleated RBC Not Reportable 03/22/20 04:26 Total Counted 100 03/22/20 04:26 Band Neuts % (Manual) 7 % (0-10) 03/22/20 04:26 Abnorm Lymph % (Manual) 0 % 03/22/20 04:26 Nucleated RBC % Not Reportable 03/22/20 04:26 Neutrophils # (Manual) 16.0 10^3/uL (1.5-6.6) H 03/22/20 04:26 Lymphocytes # (Manual) 0.9 10^3/uL (1.5-3.5) L 03/22/20 04:26 Monocytes # (Manual) 0.2 10^3/uL (0.0-1.0) 03/22/20 04:26 Eosinophils # (Manual) 0.0 10^3/uL (0-0.7) 03/22/20 04:26 Basophils # (Manual) 0.0 10^3/uL (0-0.1) 03/22/20 04:26 Differential Comment MANUAL DIFFERENTIAL 03/22/20 04:26 WBC Morphology NORMAL APPEARANCE (NORMAL) 03/22/20 04:26 Platelet Estimate NORMAL (130-450,000) (NORMAL) 03/22/20 04:26 Platelet Morphology NORMAL APPEARANCE (NORMAL) 03/22/20 04:26 RBC Morph Micro Appear NORMAL APPEARANCE (NORMAL) 03/22/20 04:26 Sodium 134 mmol/L (135-145) L 03/22/20 04:26 Potassium 3.2 mmol/L (3.5-5.0) L 03/22/20 04:26 Chloride 106 mmol/L (101-111) 03/22/20 04:26 Carbon Dioxide 22 mmol/L (21-32) 03/22/20 04:26 Anion Gap 6.0 (6-13) 03/22/20 04:26 BUN 12 mg/dL (6-20) 03/22/20 04:26 Creatinine 0.8 mg/dL (0.4-1.0) 03/22/20 04:26 Estimated GFR (MDRD) 69 (>89) L 03/22/20 04:26 Glucose 148 mg/dL (70-100) H 03/22/20 04:26 Lactic Acid 1.1 mmol/L (0.5-2.2) 03/21/20 18:17 Calcium 7.8 mg/dL (8.5-10.3) L 03/22/20 04:26 Phosphorus 1.6 mg/dL (2.5-4.6) L 03/22/20 04:26 Magnesium 1.9 mg/dL (1.7-2.8) 03/22/20 04:26 Total Bilirubin 1.4 mg/dL (0.2-1.0) H 03/21/20 17:19 AST 30 IU/L (10-42) 03/21/20 17:19 ALT 24 IU/L (10-60) 03/21/20 17:19 Alkaline Phosphatase 86 IU/L (42-121) 03/21/20 17:19 Total Protein 6.4 g/dL (6.7-8.2) L 03/21/20 17:19 Albumin 3.9 g/dL (3.2-5.5) 03/21/20 17:19 Globulin 2.5 g/dL (2.1-4.2) 03/21/20 17:19 Albumin/Globulin Ratio 1.6 (1.0-2.2) 03/21/20 17:19 Lipase 25 U/L (22-51) 03/21/20 17:19 Urine Color ORANGE 03/21/20 17:55 Urine Clarity SL. CLOUDY (CLEAR) 03/21/20 17:55 Urine pH 5.0 PH (5.0-7.5) 03/21/20 17:55 Ur Specific [place] 1.020 (1.002-1.030) 03/21/20 17:55 Urine Protein mg/dL (NEGATIVE) 03/21/20 17:55 Urine Glucose (UA) 250 mg/dL (NEGATIVE) H 03/21/20 17:55 Urine Ketones 15 mg/dL (NEGATIVE) H 03/21/20 17:55 Urine Occult Blood MODERATE (NEGATIVE) H 03/21/20 17:55 Urine Nitrite POSITIVE (NEGATIVE) H 03/21/20 17:55 Urine Bilirubin NEGATIVE (NEGATIVE) 03/21/20 17:55 Urine Urobilinogen E.U./dL (NORMAL) 03/21/20 17:55 Ur Leukocyte Esterase MODERATE (NEGATIVE) H 03/21/20 17:55 Urine RBC 6-10 /HPF (0-5) H 03/21/20 17:55 Urine WBC >25 /HPF (0-5) H 03/21/20 17:55 Ur Squamous Epith Cells RARE Squamous (<= Few) 03/21/20 17:55 Urine Bacteria Moderate /HPF (None Seen) H 03/21/20 17:55 Ur Microscopic Review INDICATED 03/21/20 17:55 Urine Culture Comments INDICATED 03/21/20 17:55 Nasal Adenovirus (PCR) NOT DETECTED 03/21/20 20:18 Nasal B. parapertussis DNA (PCR) NOT DETECTED 03/21/20 20:18 Nasal Coronavir 229E PCR NOT DETECTED 03/21/20 20:18 Nasal Coronavir HKU1 PCR NOT DETECTED 03/21/20 20:18 Nasal Coronavir NL63 PCR NOT DETECTED 03/21/20 20:18 Nasal Coronavir OC43 PCR NOT DETECTED 03/21/20 20:18 Nasal Enterovir/Rhinovir PCR NOT DETECTED 03/21/20 20:18 Nasal Influenza B PCR NOT DETECTED 03/21/20 20:18 Nasal Influenza A PCR NOT DETECTED 03/21/20 20:18 Nasal Parainfluen 1 PCR NOT DETECTED 03/21/20 20:18 Nasal Parainfluen 2 PCR NOT DETECTED 03/21/20 20:18 Nasal Parainfluen 3 PCR NOT DETECTED 03/21/20 20:18 Nasal Parainfluen 4 PCR NOT DETECTED 03/21/20 20:18 Nasal RSV (PCR) NOT DETECTED 03/21/20 20:18 Nasal B.pertussis DNA PCR NOT DETECTED 03/21/20 20:18 Nasal C.pneumoniae (PCR) NOT DETECTED 03/21/20 20:18 Juan F Human Metapneumo PCR NOT DETECTED 03/21/20 20:18 Nasal M.pneumoniae (PCR) NOT DETECTED 03/21/20 20:18 Nasal SARS-CoV-2 (PCR) NOT DETECTED 03/21/20 20:18
[2020-03-22] MEDS: MULTIVITAMIN W/MINERALS TABLET PO SCH (22:05)
[2020-03-22] MEDS ORDERED: LIDOCAINE PATCH 5% TOP PRN (22:17)
[2020-03-23] MEDS: ACETAMINOPHEN 325 MG TABLET PO PRN ×4 (03:41→22:25)
[2020-03-23] MEDS: SODIUM CHLORIDE FLUSH 0.9% 10 ML SYRINGE IVP SCH ×3 (03:44→16:53)
[2020-03-23] MEDS: D5NS W/20 MEQ KCL 1,000 ML IV SCH ×3 (04:48→17:06)
[2020-03-23 05:33] LABS: BASOPHILS % (AUTO) 0.2 %; EOSINOPHILS % (AUTO) 0.1 %; HGB - HEMOGLOBIN 9.3 g/dL (12.0-16.0); LYMPHOCYTES # (AUTO) 0.5 10^3/uL (1.5-3.5); LYMPHOCYTES % (AUTO) 4.3 %; MEAN CORPUSCULAR HEMOGLOBIN 34.7 pg (27.0-31.0); MEAN CORPUSCULAR HGB CONC 33.2 g/dL (32.0-36.0); MEAN CORPUSCULAR VOLUME 104.5 fL (81.0-99.0); MEAN PLATELET VOLUME 9.6 fL (7.9-10.8); MONOCYTES # (AUTO) 0.9 10^3/uL (0.0-1.0); MONOCYTES % (AUTO) 7.8 %; NEUTROPHILS # (AUTO) 10.2 10^3/uL (1.5-6.6); NEUTROPHILS % (AUTO) 86.7 %; PLT - PLATELET COUNT 132 10^3/uL (130-450); RED BLOOD COUNT 2.68 10^6/uL (4.20-5.40); RED CELL DISTRIBUTION WIDTH 12.3 % (12.0-15.0); WHITE BLOOD COUNT 11.7 x10^3/uL (4.8-10.8)
[2020-03-23 05:45] LABS: CALCIUM 7.5 mg/dL (8.5-10.3); CREATININE 0.7 mg/dL (0.4-1.0)
--- NOTE | 2020-03-23 07:04 | PROVIDER PROGRESS NOTE ---
Assessment/Plan - Problem List (1) E coli bacteremia Assessment/Plan: The blood cultures from 03/21/20 is still growing E coli There was a blood cx drawn on 03/22/20 (yesterday) and we are awaiting to see if it will be negative for growth after 48 hours. Will order blood cx today (03/23/20). Therefore, she may be able to be discharged after 03/25/20. She will need a total of 14 days of antibiotics. (2) Infection due to extended spectrum beta lactamase (ESBL) producing Enterobacteriaceae bacterium Assessment/Plan: The E coli is ESBL producing. Specimen #21 has the sensitivities and it is only sensitive to Ertapenam, Imipenam, Nitrofurantoin and TMP/Sulfa. She was started on Meram yesterday, today is day #2. Will plan 4 days of iv antibiotics here, then 10 more days of iv Ertapenam once a day. The location where it will be administered is yet to be determined by [facility] RN and UM and Social work. Will order PICC line placement to be done tomorrow by Anesthesia. I told the patient this entire plan and she understands and is in agreement. (3) E. coli UTI Assessment/Plan: The urine cx which was done, taken at the ER visit the day before this admission, is growing coli. Will manage as above in #1 and #2. (4) Pyelonephritis due to Escherichia coli Assessment/Plan: As per CT imaging ths admission. (5) Hyponatremia Assessment/Plan: Her Na was 130 at admission, and it was hypovolemic hyponatremia. She has been getting iv with NS. Yesterday and today, the Na is 134. Continue iv with NS, but will decrease rate, as she is now developing her HTN. (6) Hypokalemia Assessment/Plan: She still requires replacement. Will order K riders. Follow BMP daily, and serum Mag qod. (7) Hypocalcemia Assessment/Plan: Even corrected for Alb, she is hypocalcemic. Will order several days of TUMS for replacement. (8) Hx of essential hypertension Assessment/Plan: She had "soft" BPs since admission until 6 pm today, when systolic maritza to 153. Will decrease heriv containing saline, stop it tomorrow. Will resume her home BP meds in am. (9) Headache Assessment/Plan: This is not new, has been intermittent for 3 years since a head injury. She uses only Tylenol and has weaned herself off narcotics, for pain control, she said. Continue po Tylenol prn and a daily Lidocaine patch topically scheduled. (10) Anxiety and depression Assessment/Plan: She is on her homed for this. (11) Sepsis Qualifiers: Sepsis type: Escherichia coli Sepsis acute organ dysfunction status: unspe cified Qualified Code(s): A41.51 - Sepsis due to Escherichia coli [E. coli] Assessment/Plan: Resolved. No fever, white count nearly normal, no further tachycardia. - Current Meds Current Meds: Current Medications Generic Name Dose Route Start Last Admin Trade Name Freq PRN Reason Stop Dose Admin Acetaminophen 650 mg 03/21/20 20:08 03/23/20 03:41 Acetaminophen 325 Mg Tablet PO 650 mg Q4HR PRN Administration Pain or Fever > 38C (100.4F) Famotidine 20 mg 03/21/20 21:00 03/22/20 21:07 Famotidine 20 Mg Tablet PO 20 mg BID ZAYRA Administration Potassium Chloride/Dextrose/Sod Cl 1,000 mls @ 150 mls/hr 03/21/20 21:00 03/23/20 04:48 IV 150 mls/hr .Q6H40M ZAYRA Administration Meropenem 1 gm/ Sodium 100 mls @ 200 mls/hr 03/22/20 11:00 03/22/20 21:45 Chloride IV Infused BID ZAYRA Infusion Lidocaine 1 patch 03/22/20 22:17 03/23/20 03:42 Lidocaine Patch 5% TOP 1 patch DAILY PRN Administration PAIN Multivitamins/Minerals 1 tab 03/22/20 22:00 03/22/20 22:05 Multivitamin W/Minerals Tablet PO 1 tab BID ZAYRA Administration Phenazopyridine HCl 100 mg 03/22/20 17:00 03/22/20 16:45 Phenazopyridine 100 Mg Tablet PO 03/25/20 12:01 100 mg TIDWM ZAYRA Administration Sodium Chloride 10 ml 03/22/20 01:00 03/23/20 03:44 Sodium Chloride Flush 0.9% 10 Ml Syringe IVP Not Given 0100,0900,1700 ZAYRA - Lab Result Fish Bone Diagrams: 03/23/20 04:32 03/23/20 04:32 - Additional Planning My Orders: My Active Orders 03/22/20 20:55 LORazepam [Ativan] 0.5 mg PO BID PRN 03/22/20 22:00 Multivitamin W/Minerals [Theragran M] 1 tab PO BID 03/22/20 22:17 Lidocaine Patch 5% [Lidoderm Patch] 1 patch TOP DAILY PRN 03/22/20 22:31 CULTURE, BLOOD #1 [RM] Stat 03/23/20 08:00 Potassium Chloride/Water 10 mEq/100 mL q1h (Enter # of bags) Potassium Chlor 10 Meq/100 ml [Potassium Chloride] 10 meq in 100 ml IV Q1H 03/23/20 09:00 Calcium Carbonate [Tums] 500 mg PO BID Cholecalciferol [Vitamin D3] 25 mcg PO DAILY Cyanocobalamin [Vitamin B-12] 1,000 mcg PO DAILY buPROPion [Wellbutrin Sr] 200 mg PO BID 03/24/20 05:00 BMP - BASIC METABOLIC PANEL [CHEM] DAILYLAB CBC - COMP BLD CT W/AUTO DIFF [HEME] DAILYLAB Subjective - Subjective Patient Reports: Feeling Better, Pain (She still has pain in the pelvic and suprapubic area ever since this UTI started) Objective Vital Signs: Vital Signs - 24 hr 03/22/20 03/22/20 03/22/20 08:51 13:00 16:58 Temperature 37.3 C 36.6 C 37.4 C Heart Rate [ 90 90 92 Monitoring electrodes] Respiratory 20 18 20 Rate Blood Pressure 104/56 L 116/65 112/68 [Right Brachial artery] O2 Saturation 94 98 96 03/22/20 03/23/20 03/23/20 19:49 00:14 06:04 Temperature 37.4 C 37.5 C 36.9 C Heart Rate [ 70 95 87 Monitoring electrodes] Respiratory 18 18 18 Rate Blood Pressure 116/63 127/72 114/61 [Right Brachial artery] O2 Saturation 95 95 91 L Oxygen O2 Source Room air I&O (Last 24 Hrs): Intake and Output Totals x24h 03/21/20 03/22/20 03/23/20 23:59 23:59 23:59 Intake Total 1999 5627.5 1200 Output Total 50 Balance 1999 5577.5 1200 General: Alert, Oriented x3 HEENT: Mucous membr. moist/pink Neck: Supple, No JVD Neuro: Alert, Non Focal Cardiovascular: Regular rate Respiratory: No respiratory distress Abdomen: Other (Not distended) Extremities: No edema - Results Results: Laboratory Results WBC 11.7 x10^3/uL (4.8-10.8) H 03/23/20 04:32 RBC 2.68 10^6/uL (4.20-5.40) L 03/23/20 04:32 Hgb 9.3 g/dL (12.0-16.0) L 03/23/20 04:32 Hct 28.0 % (37.0-47.0) L 03/23/20 04:32 MCV 104.5 fL (81.0-99.0) H 03/23/20 04:32 MCH 34.7 pg (27.0-31.0) H 03/23/20 04:32 MCHC 33.2 g/dL (32.0-36.0) 03/23/20 04:32 RDW 12.3 % (12.0-15.0) 03/23/20 04:32 Plt Count 132 10^3/uL (130-450) 03/23/20 04:32 MPV 9.6 fL (7.9-10.8) 03/23/20 04:32 Neut # (Auto) 10.2 10^3/uL (1.5-6.6) H 03/23/20 04:32 Lymph # (Auto) 0.5 10^3/uL (1.5-3.5) L 03/23/20 04:32 [place] # (Auto) 0.9 10^3/uL (0.0-1.0) 03/23/20 04:32 Eos # (Auto) 0.0 10^3/uL (0.0-0.7) 03/23/20 04:32 Baso # (Auto) 0.0 10^3/uL (0.0-0.1) 03/23/20 04:32 Absolute Nucleated RBC 0.00 x10^3/uL 03/23/20 04:32 Total Counted 100 03/22/20 04:26 Band Neuts % (Manual) 7 % (0-10) 03/22/20 04:26 Abnorm Lymph % (Manual) 0 % 03/22/20 04:26 Nucleated RBC % 0.0 /100WBC 03/23/20 04:32 Neutrophils # (Manual) 16.0 10^3/uL (1.5-6.6) H 03/22/20 04:26 Lymphocytes # (Manual) 0.9 10^3/uL (1.5-3.5) L 03/22/20 04:26 Monocytes # (Manual) 0.2 10^3/uL (0.0-1.0) 03/22/20 04:26 Eosinophils # (Manual) 0.0 10^3/uL (0-0.7) 03/22/20 04:26 Basophils # (Manual) 0.0 10^3/uL (0-0.1) 03/22/20 04:26 Differential Comment MANUAL DIFFERENTIAL 03/22/20 04:26 WBC Morphology NORMAL APPEARANCE (NORMAL) 03/22/20 04:26 Platelet Estimate NORMAL (130-450,000) (NORMAL) 03/22/20 04:26 Platelet Morphology NORMAL APPEARANCE (NORMAL) 03/22/20 04:26 RBC Morph Micro Appear NORMAL APPEARANCE (NORMAL) 03/22/20 04:26 Sodium 134 mmol/L (135-145) L 03/23/20 04:32 Potassium 3.3 mmol/L (3.5-5.0) L 03/23/20 04:32 Chloride 108 mmol/L (101-111) 03/23/20 04:32 Carbon Dioxide 19 mmol/L (21-32) L 03/23/20 04:32 Anion Gap 7.0 (6-13) 03/23/20 04:32 BUN 8 mg/dL (6-20) 03/23/20 04:32 Creatinine 0.7 mg/dL (0.4-1.0) 03/23/20 04:32 Estimated GFR (MDRD) 80 (>89) L 03/23/20 04:32 Glucose 153 mg/dL (70-100) H 03/23/20 04:32 Lactic Acid 1.1 mmol/L (0.5-2.2) 03/21/20 18:17 Calcium 7.5 mg/dL (8.5-10.3) L 03/23/20 04:32 Phosphorus 1.6 mg/dL (2.5-4.6) L 03/22/20 04:26 Magnesium 1.9 mg/dL (1.7-2.8) 03/22/20 04:26 Total Bilirubin 1.4 mg/dL (0.2-1.0) H 03/21/20 17:19 AST 30 IU/L (10-42) 03/21/20 17:19 ALT 24 IU/L (10-60) 03/21/20 17:19 Alkaline Phosphatase 86 IU/L (42-121) 03/21/20 17:19 Total Protein 6.4 g/dL (6.7-8.2) L 03/21/20 17:19 Albumin 3.9 g/dL (3.2-5.5) 03/21/20 17:19 Globulin 2.5 g/dL (2.1-4.2) 03/21/20 17:19 Albumin/Globulin Ratio 1.6 (1.0-2.2) 03/21/20 17:19 Lipase 25 U/L (22-51) 03/21/20 17:19 Urine Color ORANGE 03/21/20 17:55 Urine Clarity SL. CLOUDY (CLEAR) 03/21/20 17:55 Urine pH 5.0 PH (5.0-7.5) 03/21/20 17:55 Ur Specific [place] 1.020 (1.002-1.030) 03/21/20 17:55 Urine Protein mg/dL (NEGATIVE) 03/21/20 17:55 Urine Glucose (UA) 250 mg/dL (NEGATIVE) H 03/21/20 17:55 Urine Ketones 15 mg/dL (NEGATIVE) H 03/21/20 17:55 Urine Occult Blood MODERATE (NEGATIVE) H 03/21/20 17:55 Urine Nitrite POSITIVE (NEGATIVE) H 03/21/20 17:55 Urine Bilirubin NEGATIVE (NEGATIVE) 03/21/20 17:55 Urine Urobilinogen E.U./dL (NORMAL) 03/21/20 17:55 Ur Leukocyte Esterase MODERATE (NEGATIVE) H 03/21/20 17:55 Urine RBC 6-10 /HPF (0-5) H 03/21/20 17:55 Urine WBC >25 /HPF (0-5) H 03/21/20 17:55 Ur Squamous Epith Cells RARE Squamous (<= Few) 03/21/20 17:55 Urine Bacteria Moderate /HPF (None Seen) H 03/21/20 17:55 Ur Microscopic Review INDICATED 03/21/20 17:55 Urine Culture Comments INDICATED 03/21/20 17:55 Nasal Adenovirus (PCR) NOT DETECTED 03/21/20 20:18 Nasal B. parapertussis DNA (PCR) NOT DETECTED 03/21/20 20:18 Nasal Coronavir 229E PCR NOT DETECTED 03/21/20 20:18 Nasal Coronavir HKU1 PCR NOT DETECTED 03/21/20 20:18 Nasal Coronavir NL63 PCR NOT DETECTED 03/21/20 20:18 Nasal Coronavir OC43 PCR NOT DETECTED 03/21/20 20:18 Nasal Enterovir/Rhinovir PCR NOT DETECTED 03/21/20 20:18 Nasal Influenza B PCR NOT DETECTED 03/21/20 20:18 Nasal Influenza A PCR NOT DETECTED 03/21/20 20:18 Nasal Parainfluen 1 PCR NOT DETECTED 03/21/20 20:18 Nasal Parainfluen 2 PCR NOT DETECTED 03/21/20 20:18 Nasal Parainfluen 3 PCR NOT DETECTED 03/21/20 20:18 Nasal Parainfluen 4 PCR NOT DETECTED 03/21/20 20:18 Nasal RSV (PCR) NOT DETECTED 03/21/20 20:18 Nasal B.pertussis DNA PCR NOT DETECTED 03/21/20 20:18 Nasal C.pneumoniae (PCR) NOT DETECTED 03/21/20 20:18 Juan F Human Metapneumo PCR NOT DETECTED 03/21/20 20:18 Nasal M.pneumoniae (PCR) NOT DETECTED 03/21/20 20:18 Nasal SARS-CoV-2 (PCR) NOT DETECTED 03/21/20 20:18
[2020-03-23] MEDS: CHOLECALCIFEROL 25 MCG TABLET PO SCH (08:40)
[2020-03-23] MEDS: PHENAZOPYRIDINE 100 MG TABLET PO SCH ×3 (08:40→16:54)
[2020-03-23] MEDS: CYANOCOBALAMIN 500 MCG TABLET PO SCH (08:40)
[2020-03-23] MEDS: buPROPion SR 100 MG TABLET PO SCH ×2 (08:40→20:10)
[2020-03-23] MEDS: MULTIVITAMIN W/MINERALS TABLET PO SCH ×2 (08:40→20:10)
[2020-03-23] MEDS: MEROPENEM 1 GM in SODIUM CHLORIDE 0.9% MINIBAG 100 ML IV SCH ×2 (08:40→20:09)
[2020-03-23] MEDS: FAMOTIDINE 20 MG TABLET PO SCH ×2 (08:40→20:10)
[2020-03-23] MEDS: CALCIUM CARBONATE CHEW 500 MG TABLET PO SCH ×2 (08:40→20:10)
[2020-03-23] MEDS: POTASSIUM CHLOR 10 MEQ/100 ML 10 MEQ/100 ML BAG IV SCH ×4 (09:24→13:35)
[2020-03-24] MEDS: SODIUM CHLORIDE FLUSH 0.9% 10 ML SYRINGE IVP SCH ×3 (00:41→16:43)
[2020-03-24] MEDS: ACETAMINOPHEN 325 MG TABLET PO PRN ×3 (03:13→16:44)
[2020-03-24 05:53] LABS: BASOPHILS % (AUTO) 0.3 %; EOSINOPHILS # (AUTO) 0.1 10^3/uL (0.0-0.7); EOSINOPHILS % (AUTO) 0.6 %; HGB - HEMOGLOBIN 10.1 g/dL (12.0-16.0); LYMPHOCYTES # (AUTO) 0.6 10^3/uL (1.5-3.5); LYMPHOCYTES % (AUTO) 6.5 %; MEAN CORPUSCULAR HEMOGLOBIN 33.9 pg (27.0-31.0); MEAN CORPUSCULAR HGB CONC 33.2 g/dL (32.0-36.0); MEAN PLATELET VOLUME 9.1 fL (7.9-10.8); MONOCYTES # (AUTO) 0.9 10^3/uL (0.0-1.0); NEUTROPHILS # (AUTO) 7.5 10^3/uL (1.5-6.6); NEUTROPHILS % (AUTO) 81.2 %; PLT - PLATELET COUNT 146 10^3/uL (130-450); RED BLOOD COUNT 2.98 10^6/uL (4.20-5.40); RED CELL DISTRIBUTION WIDTH 12.3 % (12.0-15.0); WHITE BLOOD COUNT 9.3 x10^3/uL (4.8-10.8)
[2020-03-24 06:00] LABS: CALCIUM 8.6 mg/dL (8.5-10.3); CREATININE 0.6 mg/dL (0.4-1.0); MAGNESIUM 1.8 mg/dL (1.7-2.8)
[2020-03-24] MEDS: D5NS W/20 MEQ KCL 1,000 ML IV SCH ×2 (07:07→23:59)
[2020-03-24] MEDS: buPROPion SR 100 MG TABLET PO SCH ×2 (09:57→21:08)
[2020-03-24] MEDS: CALCIUM CARBONATE CHEW 500 MG TABLET PO SCH ×2 (09:57→21:08)
[2020-03-24] MEDS: CHOLECALCIFEROL 25 MCG TABLET PO SCH (09:57)
[2020-03-24] MEDS: FAMOTIDINE 20 MG TABLET PO SCH ×2 (09:57→21:08)
[2020-03-24] MEDS: CYANOCOBALAMIN 500 MCG TABLET PO SCH (09:58)
[2020-03-24] MEDS: LOSARTAN 50 MG TABLET PO SCH (09:58)
[2020-03-24] MEDS: MULTIVITAMIN W/MINERALS TABLET PO SCH ×2 (09:58→21:08)
[2020-03-24] MEDS: PHENAZOPYRIDINE 100 MG TABLET PO SCH ×3 (09:58→16:43)
[2020-03-24] MEDS: MEROPENEM 1 GM in SODIUM CHLORIDE 0.9% MINIBAG 100 ML IV SCH ×3 (09:59→21:08)
--- NOTE | 2020-03-24 11:17 | PROVIDER PROGRESS NOTE ---
Subjective - Prog Note Date Prog Note Date: 03/24/20 Prog Note Time: 11:31 - Subjective Pt reports feeling: Improved Subjective: she is tired and worries that the "infection" is still present denies fever, cough, sob, myalgias. No diarrhea. less of an appetite. worried about the logistics of getting the ertepenem. has questions about covid vaccine in view of : 1--she carries of dx of untreated MS 2--she has a hx of angioneurotic edema of unknown cause. Current Medications - Current Medications Current Medications: Active Medications Acetaminophen (Acetaminophen 325 Mg Tablet) 650 mg PO Q4HR PRN PRN Reason: Pain or Fever > 38C (100.4F) Last Admin: 03/24/20 07:07 Dose: 650 mg Documented by: Bupropion HCl (Bupropion Sr 100 Mg Tablet) 200 mg PO BID [facility] Last Admin: 03/24/20 09:57 Dose: 200 mg Documented by: Calcium Carbonate/Glycine (Calcium Carbonate Chew 500 Mg Tablet) 500 mg PO BID [facility] Stop: 03/27/20 00:00 Last Admin: 03/24/20 09:57 Dose: 500 mg Documented by: Cholecalciferol (Cholecalciferol 25 Mcg Tablet) 25 mcg PO DAILY [facility] Last Admin: 03/24/20 09:57 Dose: 25 mcg Documented by: Cyanocobalamin (Cyanocobalamin 500 Mcg Tablet) 1,000 mcg PO DAILY [facility] Last Admin: 03/24/20 09:58 Dose: 1,000 mcg Documented by: Famotidine (Famotidine 20 Mg Tablet) 20 mg PO BID [facility] Last Admin: 03/24/20 09:57 Dose: 20 mg Documented by: Meropenem 1 gm/ Sodium (Chloride) 100 mls @ 200 mls/hr IV BID [facility] Last Admin: 03/24/20 09:59 Dose: 200 mls/hr Documented by: Potassium Chloride/Dextrose/Sod Cl () 1,000 mls @ 60 mls/hr IV .[id number] [facility] Stop: 03/24/20 23:59 Last Admin: 03/24/20 07:07 Dose: 60 mls/hr Documented by: Lidocaine (Lidocaine Patch 5%) 1 patch TOP DAILY PRN PRN Reason: PAIN Last Admin: 03/23/20 03:42 Dose: 1 patch Documented by: Lorazepam (Lorazepam 0.5 Mg Tablet) 0.5 mg PO BID PRN PRN Reason: Anxiety Losartan Potassium (Losartan 50 Mg Tablet) 25 mg PO DAILY [facility] Last Admin: 03/24/20 09:58 Dose: 25 mg Documented by: Multivitamins/Minerals (Multivitamin W/Minerals Tablet) 1 tab PO BID [facility] Last Admin: 03/24/20 09:58 Dose: 1 tab Documented by: Ondansetron HCl (Ondansetron 4 Mg/2 Ml Vial) 4 mg IVP Q6HR PRN PRN Reason: Nausea / Vomiting Phenazopyridine HCl (Phenazopyridine 100 Mg Tablet) 100 mg PO TIDWM [facility] Stop: 03/25/20 12:01 Last Admin: 03/24/20 09:58 Dose: 100 mg Documented by: Potassium Chloride (Potassium Chloride 20 Meq Tablet) 20 meq PO TIDWM [facility] Sodium Chloride (Sodium Chloride Flush 0.9% 10 Ml Syringe) 10 ml IVP PRN PRN PRN Reason: NEEDED PER PROVIDER ORDERS Sodium Chloride (Sodium Chloride Flush 0.9% 10 Ml Syringe) 10 ml IVP 010 0,0900,1700 [facility] Last Admin: 03/24/20 09:59 Dose: Not Given Documented by: LORazepam [Ativan] 0.5 mg PO BID PRN 07/27/14 Vit A/Vit C/Vit E/Zinc/Copper [Preservision Areds Softgel] 1 cap PO BID 07/27/14 Cholecalciferol (Vitamin D3) [Vitamin D3] 1,000 unit PO DAILY 02/20/15 Cyanocobalamin (Vitamin B-12) [B-12] 1,000 mcg PO DAILY 02/20/15 Krill/Om-3/Dha/Epa/Phospho/Ast [Krill Oil 1,000 mg Softgel] 1 cap PO DAILY 02/20/15 Esomeprazole Magnesium [Nexium] 20 mg PO QDAC 03/22/20 Losartan Potassium 25 mg PO DAILY 03/22/20 buPROPion HCL [Bupropion HCl Sr] 200 mg PO BID 03/22/20 Objective - Vital Signs/Intake & Output Reviewed Vital Signs: Yes Vital Signs: Vital Signs x48h Temp Pulse Resp BP Pulse Ox 03/24/20 08:32 36.2 C L 81 18 136/80 H 93 03/24/20 03:19 37.0 C 101 H 20 132/76 H 91 L Intake & Output: Intake & Output 03/21/20 03/22/20 03/23/20 03/24/20 23:59 23:59 23:59 23:59 Intake Total 1999 5627.5 4214.25 Output Total 50 2550 Balance 1999 5577.5 1664.25 - Objective General Appearance: positive: No acute distress, Alert, Other (short slender elderly female who stands in the room the entire time to speak to me and to be examined. She just had her PICC line placed a was fretting she didn't get enough sedation for this) Eyes Bilateral: positive: PERRL ENT: positive: Pharynx nml, No signs of dehydration Neck: positive: No JVD. negative: Stiff neck Respiratory: positive: No respiratory distress. negative: Wheezes, Rales, Rhonchi Cardiovascular: positive: Regular rate & rhythm. negative: Gallop/S4, Friction rub Abdomen: positive: Non-tender, No organomegaly, Nml bowel sounds, No distention Extremities: positive: Full ROM, Other (right arm w PICC line now.) Neurologic/Psychiatric: positive: Oriented x3, CN's nml (2-12), Motor nml - Lab Results Fish Bones: 03/24/20 05:30 03/24/20 05:30 Other Labs: Lab Results x24hrs 03/24/20 03/24/20 Range/Units 05:30 05:30 WBC 9.3 (4.8-10.8) x10^3/uL RBC 2.98 L (4.20-5.40) 10^6/uL Hgb 10.1 L (12.0-16.0) g/dL Hct 30.4 L (37.0-47.0) % MCV 102.0 H (81.0-99.0) fL MCH 33.9 H (27.0-31.0) pg MCHC 33.2 (32.0-36.0) g/dL RDW 12.3 (12.0-15.0) % Plt Count 146 (130-450) 10^3/uL MPV 9.1 (7.9-10.8) fL Neut # (Auto) 7.5 H (1.5-6.6) 10^3/uL Lymph # (Auto) 0.6 L (1.5-3.5) 10^3/uL Ogle # (Auto) 0.9 (0.0-1.0) 10^3/uL Eos # (Auto) 0.1 (0.0-0.7) 10^3/uL Baso # (Auto) 0.0 (0.0-0.1) 10^3/uL Absolute Nucleated RBC 0.00 x10^3/uL Nucleated RBC % 0.0 /100WBC Sodium 135 (135-145) mmol/L Potassium 3.4 L (3.5-5.0) mmol/L Chloride 105 (101-111) mmol/L Carbon Dioxide 21 (21-32) mmol/L Anion Gap 9.0 (6-13) BUN 7 (6-20) mg/dL Creatinine 0.6 (0.4-1.0) mg/dL Estimated GFR (MDRD) 96 (>89) Glucose 127 H (70-100) mg/dL Calcium 8.6 (8.5-10.3) mg/dL Magnesium 1.8 (1.7-2.8) mg/dL ABX Reporting Has patient been on IV antibiotics over the past 48 hours?: Yes Sepsis Event Note (H) - Evaluation Current Stage of Sepsis: Resolved Possible source of Sepsis: positive: Genitourinary Confirmed Source and Organism (if known) of Sepsis: EBSL E coli Assessment/Plan - Problem List (1) Bacteremia due to Escherichia coli Impression: The blood cultures from 03/21/20 growing E coli There was a blood cx drawn on 03/22/20 negative. Blood culture 03/23/20 received and pending. Therefore, she may be able to be discharged after 03/25/20. She will need a total of 14 days of antibiotics. I have explained that to her. (2) UTI Infection due to extended spectrum beta lactamase (ESBL) producing Enterobacteriaceae bacterium Assessment/Plan: The E coli is ESBL producing. sensitive to Ertapenam, Imipenam, Nitrofurantoin and TMP/Sulfa. She was started on Meram 03/22/2020, today is day #3. Will plan 4 days of iv antibiotics here, then 10 more days of iv Ertapenam once a day. [place], [place], [facility] it will be administered is yet to be determined by [facility] RN and UM and Social work. Right now we are hoping for MAC and that she comes daily. She requests that she come after 10 because anything earlier is "too early" PICC line placement done today by Anesthesia. I told the patient this entire plan and she understands and is in agreement. (3) Pyelonephritis due to Escherichia coli Assessment/Plan: As per CT imaging ths admission. (4) Hyponatremia resolved. Assessment/Plan: Her Na was 130 at admission, and it was hypovolemic hyponatremia. She has been getting iv with NS. the Na was 134 for 2 days and 135 today so normal now. Continue iv with NS at decreased rate, as she is now developing her HTN. (5) Hypokalemia still present Assessment/Plan: She still requires replacement today even after K riders from last 2 days. Will order po today at [facility]. Follow BMP daily, and serum Mag qod. (6) Hypocalcemia resolved Assessment/Plan: Even corrected for Alb, she was hypocalcemic. After several days of TUMS for replacement she is normal today plan on continuing in the outpatient setting. (7) Hx of essential hypertension Assessment/Plan: She had "soft" BPs since admission until 6 pm 03/23/2020, when systolic maritza to 153. DC [facility] today Losartan resumed this am and BP 130s systolic. 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 She uses only Tylenol and has weaned herself off narcotics, for pain control, she said. Continue po Tylenol prn and a daily Lidocaine patch topically scheduled. (9) Anxiety and depression Assessment/Plan: She is on her homed for this. (10) Sepsis resolved since 03/23/20 Qualifiers: Sepsis type: Escherichia coli Sepsis acute organ dysfunction status: unspecified Qualified Code(s): A41.51 - Sepsis due to Escherichia coli [E. coli] Assessment/Plan: Resolved. No fever, white count nearly normal, no further tachycardia.
[2020-03-24] MEDS: LORazepam 0.5 MG TABLET PO PRN (11:38)
--- NOTE | 2020-03-24 14:25 | ANESTHESIA PROCEDURE NOTE ---
Anesth Central Line Template - Central Line Central Line Preparation: Consent Obtained, Time out completed, Ultrasound used, Sterile prep and drape Central line location: Right Basilic Central line type: PICC Single Lumen Central line catheter tip site resides: Superior vena cava (SVC) Central line aftercare: Secured (statlock), No complications, Bundle checklist complete, Pt tolerated well Other Info/Details: Trimed to 35cm left hubbed.
[2020-03-24] MEDS: POTASSIUM CHLORIDE 20 MEQ TABLET PO SCH ×2 (14:32→16:43)
--- NOTE | 2020-03-24 15:03 | XRAY Report ---
PROCEDURE: Chest for Line Placement INDICATIONS: PICC line on right TECHNIQUE: One view of the chest was acquired. COMPARISON: Prior chest CT 09/27/2018 FINDINGS: Surgical changes and devices: Central line from right-sided approach extends inferiorly in the expect ed position of the distal SVC but then curves cephalad the tip terminating at the azygos arch level.. Lungs and pleura: No pleural effusions or pneumothorax. Lungs are abnormal, with interstitial promi nence bilaterally. The patient is tilted and rotated leftward. There appears to be small bilateral edwards bpulmonic pleural effusions, left slightly greater than right.. Mediastinum: Mediastinal contours appear normal. Heart size is normal. Bones and chest wall: No suspicious bony lesions. Overlying soft tissues appear unremarkable. IMPRESSION: The PICC line from right-sided approach curves on itself within the expected region of the distal SVC and the tip then curves cephalad and terminates at the azygos arch level of the superior vena cava. This predisposes to kinking at the point of the curve, and repositioning appears warranted. Reviewed by: Yosef Enriquez MD on 03/24/2020 3:02 PM PST Approved by: Yosef Enriquez MD on 03/24/2020 3:02 PM PST Station ID: [id number]
[2020-03-25] MEDS: D5NS W/20 MEQ KCL 1,000 ML IV SCH (00:10)
[2020-03-25] MEDS: SODIUM CHLORIDE FLUSH 0.9% 10 ML SYRINGE IVP SCH ×3 (01:44→17:23)
[2020-03-25] MEDS: ACETAMINOPHEN 325 MG TABLET PO PRN ×3 (02:14→21:21)
[2020-03-25] MEDS: LORazepam 0.5 MG TABLET PO PRN ×2 (02:30→21:21)
[2020-03-25] MEDS: MEROPENEM 1 GM in SODIUM CHLORIDE 0.9% MINIBAG 100 ML IV SCH ×2 (05:54→21:20)
[2020-03-25 10:15] LABS: BASOPHILS # (AUTO) 0.1 10^3/uL (0.0-0.1); BASOPHILS % (AUTO) 0.6 %; EOSINOPHILS # (AUTO) 0.2 10^3/uL (0.0-0.7); EOSINOPHILS % (AUTO) 2.5 %; HGB - HEMOGLOBIN 10.7 g/dL (12.0-16.0); LYMPHOCYTES # (AUTO) 0.7 10^3/uL (1.5-3.5); LYMPHOCYTES % (AUTO) 7.5 %; MEAN CORPUSCULAR VOLUME 102.9 fL (81.0-99.0); MEAN PLATELET VOLUME 9.2 fL (7.9-10.8); MONOCYTES # (AUTO) 1.1 10^3/uL (0.0-1.0); MONOCYTES % (AUTO) 12.6 %; NEUTROPHILS # (AUTO) 6.7 10^3/uL (1.5-6.6); NEUTROPHILS % (AUTO) 74.7 %; PLT - PLATELET COUNT 161 10^3/uL (130-450); RED BLOOD COUNT 3.15 10^6/uL (4.20-5.40); RED CELL DISTRIBUTION WIDTH 12.6 % (12.0-15.0)
[2020-03-25 10:22] LABS: CALCIUM 9.1 mg/dL (8.5-10.3); CREATININE 0.8 mg/dL (0.4-1.0)
[2020-03-25] MEDS: MULTIVITAMIN W/MINERALS TABLET PO SCH ×2 (11:07→21:21)
[2020-03-25] MEDS: LOSARTAN 50 MG TABLET PO SCH (11:07)
[2020-03-25] MEDS: CHOLECALCIFEROL 25 MCG TABLET PO SCH (11:07)
[2020-03-25] MEDS: CYANOCOBALAMIN 500 MCG TABLET PO SCH (11:07)
[2020-03-25] MEDS: CALCIUM CARBONATE CHEW 500 MG TABLET PO SCH (11:07)
[2020-03-25] MEDS: FAMOTIDINE 20 MG TABLET PO SCH ×2 (11:07→21:21)
[2020-03-25] MEDS: PHENAZOPYRIDINE 100 MG TABLET PO SCH ×2 (11:07→13:15)
[2020-03-25] MEDS: buPROPion SR 100 MG TABLET PO SCH ×2 (11:07→21:20)
[2020-03-25] MEDS: POTASSIUM CHLORIDE 20 MEQ TABLET PO SCH (11:07)
--- NOTE | 2020-03-25 11:44 | Discharge Plan ---
Discharge Plan Problem Reviewed?: Yes Disposition: Home, Self Care Condition: Stable Prescriptions: Ertapenem [INVanz] 1 gm IV Q24H #12 vial Phenazopyridine [Pyridium] 100 mg PO TIDWM PRN #10 tablet PRN Reason: urinary burning Diet: Regular Activity Restrictions: Activity as Tolerated Shower Restrictions: No (fall precaution) Instruction Topics: Ertapenem injection, Phenazopyridine tablets, ED Bacteremia Rule Out Ch Health Concerns: bacteremia and UTI Plan of Treatment: you are arranged to finish the treatment course for your bacteremia infection in MAC clinic, advise you on time to have IV antibiotics in MAC clinic. Pyridium is prescribed for urinary burning/pain as needed for you. You may resume your ho me medications as the scheduled. You may followup with urologist as out-pt as clinic indicated. Care Goals: stabilization, improvement/resolve of your medical conditions. Assessment: discussed the care plan with you, answered your questions, you understood. Additional Instructions or Follow Up instructions: you may followup with your PCP in one week. Should your symptoms return or worsen, you may present ER or call 911 for help. Follow-Up Care: Outpatient Rehab - PT No Smoking: If you smoke, Please STOP! Call for help. Follow-up with: Jose F Townsend DO [Primary Care Provider] -
[2020-03-25] MEDS ORDERED: MEROPENEM 1 GM in SODIUM CHLORIDE 0.9% MINIBAG 100 ML IV ONE (13:00)
[2020-03-25] MEDS: SODIUM CHLORIDE FLUSH 0.9% 10 ML SYRINGE IVP PRN ×2 (13:15→21:21)
--- NOTE | 2020-03-25 15:58 | DISCHARGE SUMMARY ---
Discharge Summary Admit Date: 03/21/20 Discharge Date: 03/25/20 Discharging Provider: Nii Hayward Primary Care Provider: Dr. Peyton Townsend Code Status: Attempt Resuscitation Condition at Discharge: Stable Discharge Disposition: Home, Self Care Discharge Facility Name: home - DIAGNOSES Discharge Diagnoses with Status of Each Condition: (1) Bacteremia due to Escherichia coli Blood cultures show positive ESBL bacterial infection. Repeated twice blood cultures show negative for bacterial infection. After treated patient has no fever, WBC is normal, lactic acid become normal. Patient had a PICC line. Pat ient was arranged to have two weeks of intravenous Ertapenem in MAC clinic by social science research assistant. (2) UTI Infection due to extended spectrum beta lactamase (ESBL) producing Enterobacteriaceae bacterium Urinalysis And the urine culture show patient had ESBL E. coli infection, Se nsitivity study show only sensitivity to meropenem and ertapenem. Patient was arranged to have two weeks of intravenous Ertapenem in MAC clinic by social science research assistant. (3) Pyelonephritis due to Escherichia coli After treated, Patient reported she feel much better, patient denied nausea or vomiting. patient has no fever, WBC is normal, lactic acid become normal. Patient had a PICC line. Patient was arranged to have two weeks of intravenous Ertapenem in MAC clinic by social science research assistant. (4) Hyponatremia resolved. resolved (5) Hypokalemia resolved. (6) Hypocalcemia resolved resolved (7) Hx of essential hypertension stable (8) Headache resolved (9) Anxiety and depression stable (10) Sepsis resolved since 03/23/20 Resolved. - HPI History of Present Illness: Patient was admitted for failure of out-pt patient's UTI urinary tract infection. Patient present ER 2 days ago, patient was found to UTI, patient was prescribed Cipro. After patient went to the home, patient feel worsening symptoms, has fever in the home, and dysuria, then patient come back to ER. P atient was found to have ESBL E. coli urinary tract infection and ESBL infection in the bloodstream. CAT scan of abdomen and pelvis show pyelonephritis on the right. - HOSPITAL COURSE Hospital Course: Patient was admitted for failed of out-pt urinary tract infection. Patient was found to have ESBL E. coli infection in urinary tract and the bloodstream. Jeannette ent was treated with meropenem. Repeated twice blood culture was negative for bacteremia. Patient had a PICC line in the hospital. Patient was arranged to have intravenous of [place] [facility] [place] 2 [place]. - ALLERGIES Allergies/Adverse Reactions: Allergies Allergy/AdvReac Type Severity Reaction Status Date / Time gabapentin Allergy Unknown Verified 03/27/20 07:15 fluoxetine HCl * AdvReac Unknown Verified 03/21/20 17:06 [From Prozac] mirtazapine [From Remeron] AdvReac Unknown Verified 03/21/20 17:06 - MEDICATIONS Home Medications: Ambulatory Orders Medication Instructions Recorded Confirmed LORazepam [Ativan] 0.5 mg PO BID PRN 07/27/14 03/22/20 Vit A/Vit C/Vit E/Zinc/Copper 1 cap PO BID 07/27/14 03/22/20 [Preservision Areds Softgel] Cholecalciferol (Vitamin D3) 1,000 unit PO DAILY 02/20/15 03/22/20 [Vitamin D3] Cyanocobalamin (Vitamin B-12) 1,000 mcg PO DAILY 02/20/15 03/22/20 [B-12] Krill/Om-3/Dha/Epa/Phospho/Ast 1 cap PO DAILY 02/20/15 03/22/20 [Krill Oil 1,000 mg Softgel] Esomeprazole Magnesium [Nexium] 20 mg PO QDAC 03/22/20 03/22/20 Losartan Potassium 25 mg PO DAILY 03/22/20 03/22/20 buPROPion HCL [Bupropion HCl Sr] 200 mg PO BID 03/22/20 03/22/20 Ertapenem [INVanz] 1 gm IV Q24H #12 vial 03/25/20 - PHYSICAL EXAM AT DISCHARGE General Appearance: positive: No acute distress, Alert. negative: Lethargic Eyes Bilateral: positive: Normal inspection, PERRL, No lid inflammation ENT: positive: ENT inspection nml, No signs of dehydration. negative: Purulent nasal drainage Neck: positive: Nml inspection, Trachea midline. negative: Thyromegaly, Tracheal deviation Respiratory: positive: Chest non-tender, No respiratory distress, Breath sounds nml. negative: Wheezes, Rales, Rhonchi Cardiovascular: positive: Regular rate & rhythm, No murmur. negative: Tachycardia, Bradycardia, Systolic murmur, Diastolic murmur Peripheral Pulses: positive: 2+ Abdomen: positive: Non-tender, Nml bowel sounds, No distention. negative: Tenderness, Guarding, Rebound Back: positive: Nml inspection. negative: CVA tenderness (R), CVA tenderness (L) Skin: positive: Color nml, Warm, Dry. negative: Cyanosis, Diaphoresis, Pallor Extremities: positive: Non-tender, Full ROM, Nml appearance. negative: Calf tenderness Neurologic/Psychiatric: positive: Oriented x3, Motor nml, Sensation nml, Mood/affect nml. negative: Weakness, Sensory loss, Facial droop, Slurred/abnml speech, Depressed mood/affect - LABS Result Diagrams: 03/26/20 04:33 03/26/20 04:33 - SEPSIS Current Stage of Sepsis: Resolved Possible source of Sepsis: Genitourinary - FOLLOW UP Follow Up: you are arranged to finish the treatment course for your bacteremia infection in MAC clinic, advise you on time to have IV antibiotics in MAC clinic. You may resume your home medications as the scheduled. You may followup with urologist as out-pt as clinic indicated for your repeated severe urinary track infection. you may followup with your PCP in one week. Should your symptoms return or worsen, you may present ER or call 911 for help. - TIME SPENT Time Spent in Discharge (Minutes): 30
--- NOTE | 2020-03-25 17:43 | PROVIDER PROGRESS NOTE ---
Assessment/Plan - Problem List (1) Bacteremia due to Escherichia coli Assessment/Plan: Blood cultures show positive ESBL bacterial infection. Repeated twice blood cultures show negative for bacterial infection. Continue meropenem in the hospital. In last minutes patient still was not confirmed for MAC schedule for discharge, Patient was not discharged today, likely will discharge patient on tomorrow. Patient had a PICC line. Patient will be discharged with treatment for total 14 days for intravenous Ertapenem. (2) UTI Infection due to extended spectrum beta lactamase (ESBL) producing Enterobacteriaceae bacterium Assessment/Plan: Urinalysis And the urine culture show patient had ESBL E. coli infection, Sensitivity study show only sensitivity to meropenem and ertapenem. We will continue treated patient With meropenem in hospital. Patient will be discharged with treatment for total 14 days for intravenous Ertapenem. continue pyridium PRN (3) Pyelonephritis due to Escherichia coli Patient feels better. As per CT imaging ths admission. We will continue treated patient With meropenem in hospital. (4) Hyponatremia resolved. Assessment/Plan: Her Na was 130 at admission, and it was hypovolemic hyponatremia. She has been getting iv with NS. the Na was 134 for 2 days and 135 today so normal now. Continue iv with NS at decreased rate, as she is now developing her HTN. (5) Hypokalemia resolved. (6) Hypocalcemia resolved resolved (7) Hx of essential hypertension stable (8) Headache stable, no new complaits. This is not new, has been intermittent for 3 years since a head injury. She uses only Tylenol and has weaned herself off narcotics, for pain control, she said. Continue po Tylenol prn and a daily Lidocaine patch topically scheduled. (9) Anxiety and depression stable, She is on her homed for this. (10) Sepsis resolved since 03/23/20 Resolved. No fever, white count nearly normal, no further tachycardia. - Current Meds Current Meds: Current Medications Generic Name Dose Route Start Last Admin Trade Name Freq PRN Reason Stop Dose Admin Acetaminophen 650 mg 03/21/20 20:08 03/25/20 13:14 Acetaminophen 325 Mg Tablet PO 650 mg Q4HR PRN Administration Pain or Fever > 38C (100.4F) Bupropion HCl 200 mg 03/23/20 09:00 03/25/20 11:07 Bupropion Sr 100 Mg Tablet PO 200 mg BID ZAYRA Administration Calcium Carbonate/Glycine 500 mg 03/23/20 09:00 03/25/20 11:07 Calcium Carbonate Chew 500 Mg Tablet PO 03/27/20 00:00 500 mg BID ZAYRA Administration Cholecalciferol 25 mcg 03/23/20 09:00 03/25/20 11:07 Cholecalciferol 25 Mcg Tablet PO 25 mcg DAILY ZAYRA Administration Cyanocobalamin 1,000 mcg 03/23/20 09:00 03/25/20 11:07 Cyanocobalamin 500 Mcg Tablet PO 1,000 mcg DAILY ZAYRA Administration Famotidine 20 mg 03/21/20 21:00 03/25/20 11:07 Famotidine 20 Mg Tablet PO 20 mg BID ZAYRA Administration Lidocaine 1 patch 03/22/20 22:17 03/23/20 03:42 Lidocaine Patch 5% TOP 1 patch DAILY PRN Administration PAIN Lorazepam 0.5 mg 03/22/20 20:55 03/25/20 02:30 Lorazepam 0.5 Mg Tablet PO 0.5 mg BID PRN Administration Anxiety Losartan Potassium 25 mg 03/24/20 09:00 03/25/20 11:07 Losartan 50 Mg Tablet PO 25 mg DAILY ZAYRA Administration Multivitamins/Minerals 1 tab 03/22/20 22:00 03/25/20 11:07 Multivitamin W/Minerals Tablet PO 1 tab BID ZAYRA Administration Sodium Chloride 10 ml 03/21/20 20:08 03/25/20 13:15 Sodium Chloride Flush 0.9% 10 Ml Syringe IVP 10 ml PRN PRN Administration NEEDED PER PROVIDER ORDERS Sodium Chloride 10 ml 03/22/20 01:00 03/25/20 17:23 Sodium Chloride Flush 0.9% 10 Ml Syringe IVP 10 ml 0100,0900,1700 ZAYRA Administration - Lab Result Fish Bone Diagrams: 03/25/20 10:10 03/25/20 10:10 - Additional Planning My Orders: My Active Orders 03/25/20 15:57 Initiate Discharge Checklist [RC] .ONCE 03/25/20 15:58 Miscellaenous Nursing Order [RC] ONCE 03/25/20 22:00 Meropenem [Merrem] 1 gm Sodium Chloride 0.9% Minibag [Normal Saline 0.9% Minibag] 100 ml IV Q8HR 03/26/20 05:00 BMP - BASIC METABOLIC PANEL [CHEM] DAILYLAB CBC - COMP BLD CT W/AUTO DIFF [HEME] DAILYLAB 03/27/20 05:00 BMP - BASIC METABOLIC PANEL [CHEM] DAILYLAB CBC - COMP BLD CT W/AUTO DIFF [HEME] DAILYLAB 03/28/20 05:00 BMP - BASIC METABOLIC PANEL [CHEM] DAILYLAB CBC - COMP BLD CT W/AUTO DIFF [HEME] DAILYLAB 03/29/20 05:00 BMP - BASIC METABOLIC PANEL [CHEM] DAILYLAB CBC - COMP BLD CT W/AUTO DIFF [HEME] DAILYLAB 03/30/20 05:00 BMP - BASIC METABOLIC PANEL [CHEM] DAILYLAB CBC - COMP BLD CT W/AUTO DIFF [HEME] DAILYLAB Subjective - Subjective Patient Reports: Feeling Better Objective Vital Signs: Vital Signs - 24 hr 03/24/20 03/25/20 03/25/20 21:06 00:10 05:00 Temperature 36.8 C 36.7 C 37.6 C Heart Rate [ Brachial] Heart Rate [ 86 85 83 Radial] Respiratory 18 18 18 Rate Blood Pressure 124/79 137/73 H 122/69 [Left Brachial artery] O2 Saturation 95 95 93 03/25/20 03/25/20 03/25/20 08:13 12:14 16:04 Temperature 36.3 C L 37.3 C 36.8 C Heart Rate [ 87 88 Brachial] Heart Rate [ 91 Radial] Respiratory 18 20 Rate Blood Pressure 133/76 H 133/80 H 110/55 L [Left Brachial artery] O2 Saturation 95 96 95 Oxygen O2 Source Room air I&O (Last 24 Hrs): Intake and Output Totals x24h 03/23/20 03/24/20 03/25/20 23:59 23:59 23:59 Intake Total 4214.25 2315 2776 Output Total 2550 650 1900 Balance 1664.25 1665 876 General: Alert, Oriented x3, Cooperative, No acute distress HEENT: Atraumatic, PERRLA Neck: Supple Lymphatic: no adenopathy Neuro: Alert, Non Focal, Oriented Times 3 Cardiovascular: Regular rate, Normal S1, Normal S2 Respiratory: Chest non-tender, No respiratory distress Abdomen: Normal bowel sounds, Soft, No tenderness Extremities: Normal pulses Skin: No breakdown - Results Results: Laboratory Results WBC 9.0 x10^3/uL (4.8-10.8) 03/25/20 10:10 RBC 3.15 10^6/uL (4.20-5.40) L 03/25/20 10:10 Hgb 10.7 g/dL (12.0-16.0) L 03/25/20 10:10 Hct 32.4 % (37.0-47.0) L 03/25/20 10:10 MCV 102.9 fL (81.0-99.0) H 03/25/20 10:10 MCH 34.0 pg (27.0-31.0) H 03/25/20 10:10 MCHC 33.0 g/dL (32.0-36.0) 03/25/20 10:10 RDW 12.6 % (12.0-15.0) 03/25/20 10:10 Plt Count 161 10^3/uL (130-450) 03/25/20 10:10 MPV 9.2 fL (7.9-10.8) 03/25/20 10:10 Neut # (Auto) 6.7 10^3/uL (1.5-6.6) H 03/25/20 10:10 Lymph # (Auto) 0.7 10^3/uL (1.5-3.5) L 03/25/20 10:10 [place] # (Auto) 1.1 10^3/uL (0.0-1.0) H 03/25/20 10:10 Eos # (Auto) 0.2 10^3/uL (0.0-0.7) 03/25/20 10:10 Baso # (Auto) 0.1 10^3/uL (0.0-0.1) 03/25/20 10:10 Absolute Nucleated RBC 0.00 x10^3/uL 03/25/20 10:10 Total Counted 100 03/22/20 04:26 Band Neuts % (Manual) 7 % (0-10) 03/22/20 04:26 Abnorm Lymph % (Manual) 0 % 03/22/20 04:26 Nucleated RBC % 0.0 /100WBC 03/25/20 10:10 Neutrophils # (Manual) 16.0 10^3/uL (1.5-6.6) H 03/22/20 04:26 Lymphocytes # (Manual) 0.9 10^3/uL (1.5-3.5) L 03/22/20 04:26 Monocytes # (Manual) 0.2 10^3/uL (0.0-1.0) 03/22/20 04:26 Eosinophils # (Manual) 0.0 10^3/uL (0-0.7) 03/22/20 04:26 Basophils # (Manual) 0.0 10^3/uL (0-0.1) 03/22/20 04:26 Differential Comment MANUAL DIFFERENTIAL 03/22/20 04:26 WBC Morphology NORMAL APPEARANCE (NORMAL) 03/22/20 04:26 Platelet Estimate NORMAL (130-450,000) (NORMAL) 03/22/20 04:26 Platelet Morphology NORMAL APPEARANCE (NORMAL) 03/22/20 04:26 RBC Morph Micro Appear NORMAL APPEARANCE (NORMAL) 03/22/20 04:26 Sodium 134 mmol/L (135-145) L 03/25/20 10:10 Potassium 4.0 mmol/L (3.5-5.0) 03/25/20 10:10 Chloride 100 mmol/L (101-111) L 03/25/20 10:10 Carbon Dioxide 24 mmol/L (21-32) 03/25/20 10:10 Anion Gap 10.0 (6-13) 03/25/20 10:10 BUN 10 mg/dL (6-20) 03/25/20 10:10 Creatinine 0.8 mg/dL (0.4-1.0) 03/25/20 10:10 Estimated GFR (MDRD) 69 (>89) L 03/25/20 10:10 Glucose 105 mg/dL (70-100) H 03/25/20 10:10 Lactic Acid 1.1 mmol/L (0.5-2.2) 03/21/20 18:17 Calcium 9.1 mg/dL (8.5-10.3) 03/25/20 10:10 Phosphorus 1.6 mg/dL (2.5-4.6) L 03/22/20 04:26 Magnesium 1.8 mg/dL (1.7-2.8) 03/24/20 05:30 Total Bilirubin 1.4 mg/dL (0.2-1.0) H 03/21/20 17:19 AST 30 IU/L (10-42) 03/21/20 17:19 ALT 24 IU/L (10-60) 03/21/20 17:19 Alkaline Phosphatase 86 IU/L (42-121) 03/21/20 17:19 Total Protein 6.4 g/dL (6.7-8.2) L 03/21/20 17:19 Albumin 3.9 g/dL (3.2-5.5) 03/21/20 17:19 Globulin 2.5 g/dL (2.1-4.2) 03/21/20 17:19 Albumin/Globulin Ratio 1.6 (1.0-2.2) 03/21/20 17:19 Lipase 25 U/L (22-51) 03/21/20 17:19 Urine Color ORANGE 03/21/20 17:55 Urine Clarity SL. CLOUDY (CLEAR) 03/21/20 17:55 Urine pH 5.0 PH (5.0-7.5) 03/21/20 17:55 Ur Specific [place] 1.020 (1.002-1.030) 03/21/20 17:55 Urine Protein mg/dL (NEGATIVE) 03/21/20 17:55 Urine Glucose (UA) 250 mg/dL (NEGATIVE) H 03/21/20 17:55 Urine Ketones 15 mg/dL (NEGATIVE) H 03/21/20 17:55 Urine Occult Blood MODERATE (NEGATIVE) H 03/21/20 17:55 Urine Nitrite POSITIVE (NEGATIVE) H 03/21/20 17:55 Urine Bilirubin NEGATIVE (NEGATIVE) 03/21/20 17:55 Urine Urobilinogen E.U./dL (NORMAL) 03/21/20 17:55 Ur Leukocyte Esterase MODERATE (NEGATIVE) H 03/21/20 17:55 Urine RBC 6-10 /HPF (0-5) H 03/21/20 17:55 Urine WBC >25 /HPF (0-5) H 03/21/20 17:55 Ur Squamous Epith Cells RARE Squamous (<= Few) 03/21/20 17:55 Urine Bacteria Moderate /HPF (None Seen) H 03/21/20 17:55 Ur Microscopic Review INDICATED 03/21/20 17:55 Urine Culture Comments INDICATED 03/21/20 17:55 Nasal Adenovirus (PCR) NOT DETECTED 03/21/20 20:18 Nasal B. parapertussis DNA (PCR) NOT DETECTED 03/21/20 20:18 Nasal Coronavir 229E PCR NOT DETECTED 03/21/20 20:18 Nasal Coronavir HKU1 PCR NOT DETECTED 03/21/20 20:18 Nasal Coronavir NL63 PCR NOT DETECTED 03/21/20 20:18 Nasal Coronavir OC43 PCR NOT DETECTED 03/21/20 20:18 Nasal Enterovir/Rhinovir PCR NOT DETECTED 03/21/20 20:18 Nasal Influenza B PCR NOT DETECTED 03/21/20 20:18 Nasal Influenza A PCR NOT DETECTED 03/21/20 20:18 Nasal Parainfluen 1 PCR NOT DETECTED 03/21/20 20:18 Nasal Parainfluen 2 PCR NOT DETECTED 03/21/20 20:18 Nasal Parainfluen 3 PCR NOT DETECTED 03/21/20 20:18 Nasal Parainfluen 4 PCR NOT DETECTED 03/21/20 20:18 Nasal RSV (PCR) NOT DETECTED 03/21/20 20:18 Nasal B.pertussis DNA PCR NOT DETECTED 03/21/20 20:18 Nasal C.pneumoniae (PCR) NOT DETECTED 03/21/20 20:18 Juan F Human Metapneumo PCR NOT DETECTED 03/21/20 20:18 Nasal M.pneumoniae (PCR) NOT DETECTED 03/21/20 20:18 Nasal SARS-CoV-2 (PCR) NOT DETECTED 03/21/20 20:18 Sepsis Event Note (H) - Evaluation Current Stage of Sepsis: Resolved Possible source of Sepsis: positive: Genitourinary ABX Reporting Has patient been on IV antibiotics over the past 48 hours?: Yes Current Medications - Current Medications Current Medications: Active Medications Acetaminophen (Acetaminophen 325 Mg Tablet) 650 mg PO Q4HR PRN PRN Reason: Pain or Fever > 38C (100.4F) Last Admin: 03/25/20 13:14 Dose: 650 mg Documented by: Bupropion HCl (Bupropion Sr 100 Mg Tablet) 200 mg PO BID [facility] Last Admin: 03/25/20 11:07 Dose: 200 mg Documented by: Cholecalciferol (Cholecalciferol 25 Mcg Tablet) 25 mcg PO DAILY [facility] Last Admin: 03/25/20 11:07 Dose: 25 mcg Documented by: Cyanocobalamin (Cyanocobalamin 500 Mcg Tablet) 1,000 mcg PO DAILY [facility] Last Admin: 03/25/20 11:07 Dose: 1,000 mcg Documented by: Famotidine (Famotidine 20 Mg Tablet) 20 mg PO BID [facility] Last Admin: 03/25/20 11:07 Dose: 20 mg Documented by: Meropenem 1 gm/ Sodium (Chloride) 100 mls @ 200 mls/hr IV Q8HR [facility] Lidocaine (Lidocaine Patch 5%) 1 patch TOP DAILY PRN PRN Reason: PAIN Last Admin: 03/23/20 03:42 Dose: 1 patch Documented by: Lorazepam (Lorazepam 0.5 Mg Tablet) 0.5 mg PO BID PRN PRN Reason: Anxiety Last Admin: 03/25/20 02:30 Dose: 0.5 mg Documented by: Losartan Potassium (Losartan 50 Mg Tablet) 25 mg PO DAILY [facility] Last Admin: 03/25/20 11:07 Dose: 25 mg Documented by: Multivitamins/Minerals (Multivitamin W/Minerals Tablet) 1 tab PO BID [facility] Last Admin: 03/25/20 11:07 Dose: 1 tab Documented by: Ondansetron HCl (Ondansetron 4 Mg/2 Ml Vial) 4 mg IVP Q6HR PRN PRN Reason: Nausea / Vomiting Sodium Chloride (Sodium Chloride Flush 0.9% 10 Ml Syringe) 10 ml IVP PRN PRN PRN Reason: NEEDED PER PROVIDER ORDERS Last Admin: 03/25/20 13:15 Dose: 10 ml Documented by: Sodium Chloride (Sodium Chloride Flush 0.9% 10 Ml Syringe) 10 ml IVP 0100,0900,1700 [facility] Last Admin: 03/25/20 17:23 Dose: 10 ml Documented by: LORazepam [Ativan] 0.5 mg PO BID PRN 07/27/14 Vit A/Vit C/Vit E/Zinc/Copper [Preservision Areds Softgel] 1 cap PO BID 07/27/14 Cholecalciferol (Vitamin D3) [Vitamin D3] 1,000 unit PO DAILY 02/20/15 Cyanocobalamin (Vitamin B-12) [B-12] 1,000 mcg PO DAILY 02/20/15 Krill/Om-3/Dha/Epa/Phospho/Ast [Krill Oil 1,000 mg Softgel] 1 cap PO DAILY 02/20/15 Esomeprazole Magnesium [Nexium] 20 mg PO QDAC 03/22/20 Losartan Potassium 25 mg PO DAILY 03/22/20 buPROPion HCL [Bupropion HCl Sr] 200 mg PO BID 03/22/20
[2020-03-25] MEDS ORDERED: MEROPENEM 2 GM in SODIUM CHLORIDE 0.9% MINIBAG 100 ML IV ONE (18:00)
[2020-03-26] MEDS: SODIUM CHLORIDE FLUSH 0.9% 10 ML SYRINGE IVP SCH ×3 (01:42→16:07)
[2020-03-26 05:37] LABS: BASOPHILS # (AUTO) 0.1 10^3/uL (0.0-0.1); BASOPHILS % (AUTO) 0.6 %; EOSINOPHILS # (AUTO) 0.4 10^3/uL (0.0-0.7); EOSINOPHILS % (AUTO) 4.6 %; LYMPHOCYTES # (AUTO) 0.9 10^3/uL (1.5-3.5); LYMPHOCYTES % (AUTO) 11.7 %; MEAN CORPUSCULAR HEMOGLOBIN 34.1 pg (27.0-31.0); MEAN CORPUSCULAR HGB CONC 33.1 g/dL (32.0-36.0); MEAN CORPUSCULAR VOLUME 103.1 fL (81.0-99.0); MEAN PLATELET VOLUME 9.3 fL (7.9-10.8); MONOCYTES # (AUTO) 1.2 10^3/uL (0.0-1.0); MONOCYTES % (AUTO) 15.6 %; NEUTROPHILS # (AUTO) 5.2 10^3/uL (1.5-6.6); NEUTROPHILS % (AUTO) 65.2 %; PLT - PLATELET COUNT 180 10^3/uL (130-450); RED BLOOD COUNT 2.93 10^6/uL (4.20-5.40); RED CELL DISTRIBUTION WIDTH 12.5 % (12.0-15.0); WHITE BLOOD COUNT 7.9 x10^3/uL (4.8-10.8)
[2020-03-26 05:52] LABS: CREATININE 0.6 mg/dL (0.4-1.0)
[2020-03-26] MEDS: MEROPENEM 1 GM in SODIUM CHLORIDE 0.9% MINIBAG 100 ML IV SCH ×2 (06:13→14:10)
[2020-03-26] MEDS: ACETAMINOPHEN 325 MG TABLET PO PRN (08:21)
[2020-03-26] MEDS: CYANOCOBALAMIN 500 MCG TABLET PO SCH (10:47)
[2020-03-26] MEDS: LOSARTAN 50 MG TABLET PO SCH (10:47)
[2020-03-26] MEDS: buPROPion SR 100 MG TABLET PO SCH (10:48)
[2020-03-26] MEDS: CHOLECALCIFEROL 25 MCG TABLET PO SCH (10:48)
[2020-03-26] MEDS: MULTIVITAMIN W/MINERALS TABLET PO SCH (10:49)
[2020-03-26] MEDS: SODIUM CHLORIDE FLUSH 0.9% 10 ML SYRINGE IVP PRN (10:49)
[2020-03-26] MEDS: FAMOTIDINE 20 MG TABLET PO SCH (10:49)
[2020-03-26] MEDS ORDERED: BENZOCAINE/MENTHOL LOZENGE MM PRN (16:24)
[2020-03-26 17:17] VITALS: BP 115/78
[2020-03-26] MEDS ORDERED: MEROPENEM 2 GM in SODIUM CHLORIDE 0.9% 100ML 100 ML IV ONE (18:00)
== END 2020-03-26 19:40 | disposition home or self-care (01) | DRG 872 ==
LOC: ED 16:49 → MS3 20:08
PROVIDERS: ADMIT Internal Medicine; ATTEND Nurse Practitioner Gerontology
PROC: 02HV33Z Insertion of Infusion Device into Superior Vena Cava, Percutaneous Approach (ICD-10-PCS; principal; 2020-03-21)
DX: A41.51 Sepsis due to Escherichia coli [E. coli] (principal); N12 Tubulo-interstitial nephritis, not specified as acute or chronic; N39.0 Urinary tract infection, site not specified; E87.1 Hypo-osmolality and hyponatremia; A41.89 Other specified sepsis; E87.6 Hypokalemia; E83.51 Hypocalcemia; R51.9 Headache, unspecified; F41.9 Anxiety disorder, unspecified; F32.9 Major depressive disorder, single episode, unspecified; I10 Essential (primary) hypertension; G35 Multiple sclerosis; T78.3XXD Angioneurotic edema, subsequent encounter; M54.2 Cervicalgia; M54.9 Dorsalgia, unspecified; K21.9 Gastro-esophageal reflux disease without esophagitis; J45.909 Unspecified asthma, uncomplicated; M19.90 Unspecified osteoarthritis, unspecified site; K59.09 Other constipation; H35.30 Unspecified macular degeneration; Z79.899 Other long term (current) drug therapy; Z87.891 Personal history of nicotine dependence; Z87.440 Personal history of urinary (tract) infections
CPT/HCPCS: 36415; 71045; 74177; 80048; 80053; 81001; 83605; 83690; 83735; 84100; 85025; 87040; 87077; 87086; 87150; 87181; 87631; 96361; 96374; 99285; A9270; C1751; J2185; Q9967; 0202U; 81003

== ENCOUNTER 2020-04-10 08:00 | Outpatient (CLI) | payer MEDICARE | END 2020-04-10 23:59 | disposition home or self-care (01) | LOC: LAB.R 08:00 | PROVIDERS: ATTEND Family Medicine | DX: R30.0 Dysuria (principal) | CPT/HCPCS: 87077; 87086; 87181 ==

== ENCOUNTER 2020-09-11 11:06 | Outpatient (CLI) | payer MEDICARE ==
--- NOTE | 2020-09-11 16:10 | CT Report ---
PROCEDURE: CHEST WO INDICATIONS: LUNG NODULE TECHNIQUE: Noncontrast 5 mm thick sections acquired from the pulmonary apices to the posterior costophrenic angl es. 7 mm thick coronal and sagittal MIP reformats were then acquired. For radiation dose reduction, the following was used: automated exposure control, adjustment of mA and/or kV according to patient size. COMPARISON: CT chest 09/27/2018, 11/26/2017. FINDINGS: Image quality: There is slight motion artifact limiting evaluation. Lungs and pleura: No acute consolidation. No pleural effusions or pneumothorax. The trachea and cent ral airways appear patent. Multiple pulmonary nodules are redemonstrated: -Nodular pleural thickening with irregular margins along the right hemithorax adjacent to the major f issure measuring up to 1.6 x 0.7 cm (4/17), increased in size from approximately 1.2 x 0.6 cm previou sly. There is adjacent linear scarring. -Right lower lobe 0.4 cm nodule (4/190), stable. -Left lower lobe 0.8 cm nodule (4/234), stable. -Right upper lobe 0.4 cm nodule (4/44), stable. Mediastinum: Heart size is normal. There is a minimal pericardial effusion. Mild coronary arterial v ascular calcifications present. No mediastinal adenopathy by size criteria. Thoracic aorta and centr al pulmonary arteries are normal in size. Esophagus is normal in caliber. There is a small hiatal he rnia. Bones and chest wall: No suspicious bony lesions. No mild superior end plate compression deformity of the T12 vertebral body appears unchanged. No axillary or supraclavicular adenopathy by size criter ia. There is a small focal calcification redemonstrated within the left thyroid gland. Abdomen: Visualized upper abdominal solid organs and bowel loops appear normal in the absence of con trast. IMPRESSION: 1. Slight increase in size of nodular thickening laterally along the right major fissure with adjacen t scarring. The findings likely represent sequelae of prior infection or trauma but given the slight increase in size, a neoplastic process cannot be fully excluded. Recommend continued follow-up in 12 months to demonstrate stability. 2. Remaining bilateral pulmonary nodules appear stable in size and are benign given stability of grea ter than 2 years. Reviewed by: Crow Dudley MD on 09/11/2020 4:09 PM PDT Approved by: Crow Dudley MD on 09/11/2020 4:09 PM [facility] Station ID: [id number]
== END 2020-09-11 11:07 | disposition home or self-care (01) ==
LOC: DI 11:06
PROVIDERS: ATTEND Family Medicine
DX: R91.8 Other nonspecific abnormal finding of lung field (principal)

== ENCOUNTER 2020-11-05 16:16 | Outpatient (CLI) | payer MEDICARE | END 2020-11-05 23:59 | disposition home or self-care (01) | LOC: LAB.N 16:16 | PROVIDERS: ATTEND Nurse Practitioner | DX: R10.31 Right lower quadrant pain (principal) | CPT/HCPCS: 87086 ==

== ENCOUNTER 2020-11-17 13:20 | Outpatient (CLI) | payer MEDICARE ==
--- NOTE | 2020-11-17 15:56 | XRAY Report ---
PROCEDURE: Hip w/Pelvis 1V RT INDICATIONS: R HIP PX TECHNIQUE: AP pelvis with lateral view(s) of the bilateral hip(s). COMPARISON: None. FINDINGS: There is no fracture or dislocation. Moderate osteoarthritic changes in both hips characterized by massiel int space narrowing with subchondral sclerosis and marginal osteophytosis. Findings are fairly symmet jenny. Mild inferior sacroiliac joint degenerative changes. 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 Reviewed by: Bakari Cifuentes MD on 11/17/2020 3:54 PM PDT Approved by: Bakari Cifuentes MD on 11/17/2020 3:54 PM PDT Station ID: [id number]
== END 2020-11-17 13:21 | disposition home or self-care (01) ==
LOC: DI.N 13:20
PROVIDERS: ATTEND Family Medicine
DX: M16.0 Bilateral primary osteoarthritis of hip (principal)

== ENCOUNTER 2020-12-17 12:54 | Outpatient (CLI) | payer MEDICARE ==
--- NOTE | 2020-12-17 15:18 | DEXA Report ---
PROCEDURE: Dexa Spine and/or Hip INDICATIONS: OSTEOPENIA TECHNIQUE: Dual energy x-ray absorptiometry (DXA) was performed on a [email or web address] System. Regions measur ed are the AP Spine, femoral neck, and if needed forearm. COMPARISON: None. FINDINGS: Lumbar Spine: Bone Mineral Density 0.89 g/cm/cm,T score -2.4, osteopenia Left Femoral Neck: Bone Mineral Density 0.679 g/cm/cm, T score -2.6, osteoporosis (T score greater or equal to -1.0: NORMAL) (T score from -1.1 to -2.4: OSTEOPENIA) (T score less than or equal to -2.5 to: OSTEOPOROSIS) Impression: Osteopenia and osteoporotic changes as detailed above. Patients with diagnosis of osteoporosis or osteopenia should have regular bone mineral density assess ment. For those eligible for Medicare, routine testing is allowed once every 2 years. Testing frequ ency can be increased for patients who have rapidly progressing disease or for those who are receivin g medical therapy to restore bone mass. Reviewed by: Claudio Nieves MD on 12/17/2020 3:17 PM PDT Approved by: Claudio Nieves MD on 12/17/2020 3:17 PM PDT Station ID: [id number]
== END 2020-12-17 12:55 | disposition home or self-care (01) ==
LOC: DI 12:54
PROVIDERS: ATTEND Family Medicine
DX: M81.0 Age-related osteoporosis without current pathological fracture (principal)

== ENCOUNTER 2021-10-05 08:00 | Outpatient (CLI) | payer MEDICARE | END 2021-10-05 23:59 | disposition home or self-care (01) | LOC: LAB.N 08:00 | PROVIDERS: ATTEND Physician Assistant Medical | DX: N30.00 Acute cystitis without hematuria (principal) | CPT/HCPCS: 87077; 87086; 87181 ==

== ENCOUNTER 2021-12-08 16:00 | Outpatient (CLI) | payer MEDICARE ==
--- NOTE | 2021-12-09 08:49 | XRAY Report ---
PROCEDURE: Foot 2 View LT INDICATIONS: L FOOT PX TECHNIQUE: 2 views of the foot were acquired. COMPARISON: Left foot radiographs 09/29/2018 FINDINGS: Bones: Generalized osteopenia. There is a probable minimally displaced fracture at the fifth proximal phalangeal shaft. Scattered degenerative changes are seen in the interphalangeal joints of the toes. Soft tissues: Mild soft tissue edema in the forefoot. IMPRESSION: Minimally displaced fracture of the fifth proximal phalangeal shaft. Reviewed by: Chava Villalta MD on 12/09/2021 8:48 AM PDT Approved by: Chava Villalta MD on 12/09/2021 8:48 AM PDT Station ID: [id number]
== END 2021-12-08 16:01 | disposition home or self-care (01) ==
LOC: DI.N 16:00
PROVIDERS: ATTEND Nurse Practitioner
DX: S92.511A Displaced fracture of proximal phalanx of right lesser toe(s), initial encounter for closed fracture (principal); D64.9 Anemia, unspecified
CPT/HCPCS: 36415; 82746; 84155; 84165

== ENCOUNTER 2021-12-08 16:31 | Outpatient (CLI) | payer MEDICARE ==
[2021-12-10 14:08] LABS: A/G RATIO 1.5 (0.7-1.7); ALBUMIN 3.9 g/dL (2.9-4.4); ALPHA-1-GLOBULIN 0.2 g/dL (0.0-0.4); ALPHA-2-GLOBULIN 0.6 g/dL (0.4-1.0); BETA GLOBULIN 0.9 g/dL (0.7-1.3); GAMMA GLOBULIN 0.8 g/dL (0.4-1.8); GLOBULIN, TOTAL 2.6 g/dL (2.2-3.9); PROTEIN TOTAL 6.5 g/dL (6.0-8.5)
== END 2021-12-08 16:32 | disposition home or self-care (01) ==
LOC: LAB.N 16:31
PROVIDERS: ATTEND Nurse Practitioner
DX: D64.9 Anemia, unspecified (principal)
CPT/HCPCS: 36415; 82746; 84155; 84165

== ENCOUNTER 2022-04-26 14:47 | Outpatient (CLI) | payer MEDICARE ==
--- NOTE | 2022-04-26 18:06 | XRAY Report ---
PROCEDURE: Foot 2 View RT INDICATIONS: CONTUSION OF RIGHT LESSER TOE TECHNIQUE: 2 views of the foot were acquired. COMPARISON: None FINDINGS: Bones: Generalized decreased osseous mineralization present. Soft tissues: No tibiotalar joint effusion. Achilles tendon appears normal. IMPRESSION: Osteopenia without fracture Reviewed by: Barrett Emerson MD on 04/26/2022 5:05 PM [facility] Approved by: Barrett Emerson MD on 04/26/2022 5:05 PM [facility] Station ID: [id number]
== END 2022-04-26 14:48 | disposition home or self-care (01) ==
LOC: DI 14:47
PROVIDERS: ATTEND Physician Assistant Medical
DX: M85.871 Other specified disorders of bone density and structure, right ankle and foot (principal)

== ENCOUNTER 2022-07-13 08:00 | Outpatient (CLI) | payer MEDICARE ==
--- NOTE | 2022-07-13 16:53 | XRAY Report ---
PROCEDURE: Foot 3 View RT INDICATIONS: PAIN IN RIGHT FOOT TECHNIQUE: 3 views of the foot were acquired. COMPARISON: None. FINDINGS: Bones: No fractures or dislocations. No suspicious bony lesions. Joint space narrowing and periar eolar articular osteophyte formation at the first metatarsophalangeal joint as well as the interphala ngeal joints of the digits. Soft tissues: No suspicious soft tissue calcifications or masses. IMPRESSION: 1. Multifocal osteoarthritis. 2. No acute fracture. No osseous lesion. If symptoms and/or clinical suspicion for pathology continue , further assessment with repeat plain films, or advanced imaging (e.g., CT, MRI, or bone scan) is re commended for further assessment. Reviewed by: Fabián Andrade MD on 07/13/2022 4:51 PM PDT Approved by: Fabián Andrade MD on 07/13/2022 4:51 PM PDT Station ID: [id number]
== END 2022-07-13 23:59 | disposition home or self-care (01) ==
LOC: DI.S 08:00
PROVIDERS: ATTEND Physician Assistant
DX: M19.071 Primary osteoarthritis, right ankle and foot (principal)

== ENCOUNTER 2022-12-19 22:51 | Outpatient (CLI) | payer MEDICARE | END 2022-12-19 22:52 | disposition critical access hospital (66) | LOC: EMS 22:51 | DX: I48.91 Unspecified atrial fibrillation (principal); R07.9 Chest pain, unspecified; R00.2 Palpitations; R68.2 Dry mouth, unspecified | CPT/HCPCS: A0425; A0429 ==

== ENCOUNTER 2022-12-19 23:06 | Emergency (ER) | payer MEDICARE ==
[2022-12-19] MEDS ORDERED: SODIUM CHLORIDE 0.9% 500 ML IV STA (23:40)
--- NOTE | 2022-12-19 23:40 | ED Physician Documentation ---
PD HPI CHEST PAIN - Stated complaint Stated Complaint: HEART PALPITATIONS - Chief complaint Chief Complaint: Cardiac - History obtained from History obtained from: Patient - Additional information Additional information: Patient is an 82-year-old female presenting for evaluation of feeling a rapid heartbeat starting around 10:00 PM. Patient states that she was sitting watching TV when her symptoms started. She reports feeling a heaviness in her chest as well as achiness in her jaw. She denies feeling dizziness and was able to ambulate to the bathroom. She and her called EMS. EMS was able to obtain an EKG demonstrating A-fib with RVR. In route patient spontaneously converted to a normal sinus rhythm. She reports feeling back to normal now. She has had recent episodes of lightheadedness and feeling faint. Through her PCP she has had an echocardiogram as well as a ZIO monitor and was told that she is having some tachycardia. She was started on Cardizem approximately 2 months ago which she has been taking. She denies a known history of A-fib. She has a first appointment with cardiology scheduled at the beginning of February. She is not currently on a blood thinner. Denies recent illness, travel, immobilization. No leg pain or swelling. She denies caffeine, alcohol or drug use. Review of Systems Constitutional: denies: Fever Cardiac: reports: Palpitations Respiratory: denies: Dyspnea, Cough GI: denies: Abdominal Pain Neurologic: denies: Headache PD PAST MEDICAL HISTORY - Past Medical History Cardiovascular: None Respiratory: Asthma Neuro: Head injury, Multiple sclerosis Endocrine/Autoimmune: None GI: GERD, Chronic constipation : None HEENT: Macular degeneration Psych: Anxiety Musculoskeletal: Osteoarthritis Derm: None - Past Surgical History Past Surgical History: Yes General: Appendectomy, Colonoscopy /[employer]: Hysterectomy Derm: Skin cancer surgery - Present Medications Home Medications: Ambulatory Orders Medication Instructions Recorded Confirmed LORazepam [Ativan] 0.5 mg PO BID PRN 07/27/14 12/19/22 Vit A/Vit C/Vit E/Zinc/Copper 1 cap PO BID 07/27/14 12/19/22 [Preservision Areds Softgel] Cholecalciferol (Vitamin D3) 1,000 unit PO DAILY 02/20/15 12/19/22 [Vitamin D3] Krill/Om-3/Dha/Epa/Phospho/Ast 1 cap PO DAILY 02/20/15 12/19/22 [Krill Oil 1,000 mg Softgel] Esomeprazole Magnesium [Nexium] 20 mg PO QDAC 03/22/20 12/19/22 buPROPion HCL [Wellbutrin Xl] 300 mg PO DAILY 12/19/22 12/19/22 dilTIAZem HCL [Diltiazem 24Hr ER] 120 mg PO DAILY 12/19/22 12/19/22 Apixaban [Eliquis] 2.5 mg PO BID #60 tablet 12/20/22 - Allergies Allergies/Adverse Reactions: Allergies Allergy/AdvReac Type Severity Reaction Status Date / Time gabapentin Allergy Unknown Verified 12/19/22 23:19 fluoxetine HCl * AdvReac Unknown Verified 12/19/22 23:19 [From Prozac] mirtazapine [From Remeron] AdvReac Unknown Verified 12/19/22 23:19 - Social History Does the pt smoke?: No Smoking Status: Never smoker Does the pt drink ETOH?: Yes Does the pt have substance abuse?: No PD ED PE NORMAL - General General: Alert and oriented X 3, No acute distress, Well developed/nourished - HEENT HEENT: Atraumatic, Moist mucous membranes, Pharynx benign - Neck Neck: Supple, no meningeal sign - Cardiac Cardiac: RRR, No murmur, Strong equal pulses - Respiratory Respiratory: No respiratory distress, Clear bilaterally - Abdomen Abdomen: Soft, Non tender - Derm Derm: Warm and dry - Extremities Extremities: No calf tenderness / cord Results - Vitals Vitals: Vital Signs - 24 hr 12/19/22 12/19/22 12/20/22 23:13 23:30 00:00 Temperature 37.2 C Heart Rate 94 88 74 Respiratory 29 H 16 15 Rate Blood Pressure 139/80 H 128/82 H 150/74 H O2 Saturation 99 99 100 12/20/22 12/20/22 12/20/22 00:30 01:00 01:30 Temperature Heart Rate 70 68 70 Respiratory 14 15 16 Rate Blood Pressure 103/74 122/65 O2 Saturation 100 99 98 12/20/22 12/20/22 12/20/22 02:00 02:30 03:00 Temperature Heart Rate 67 63 69 Respiratory 14 17 17 Rate Blood Pressure 119/62 117/64 131/66 H O2 Saturation 100 99 96 12/20/22 03:30 Temperature Heart Rate 68 Respiratory 18 Rate Blood Pressure 135/67 H O2 Saturation 99 Oxygen O2 Source Room air - EKG (time done) 2313 EKG releavant findings:: EKG personally interpreted by author of this note. Relevant findings are: Rate 91, normal sinus rhythm, no STEMI, MO 262 - Labs Labs: Laboratory Tests 12/19/22 12/19/22 12/20/22 23:46 23:46 01:46 WBC 4.3 L RBC 3.53 L Hgb 11.8 L Hct 35.2 L MCV 99.7 H MCH 33.4 H MCHC 33.5 RDW 12.1 Plt Count 215 MPV 8.8 Neut # (Auto) 2.3 Lymph # (Auto) 1.2 L [place] # (Auto) 0.6 Eos # (Auto) 0.1 Baso # (Auto) 0.0 Absolute Nucleated RBC 0.00 Nucleated RBC % 0.0 Sodium 134 L Potassium 2.9 L Chloride 95 L Carbon Dioxide 35 H Anion Gap 4.0 L BUN 31 H Creatinine 1.0 Estimated GFR (MDRD) 53 L Glucose 131 H Calcium 9.7 Magnesium 2.0 Total Bilirubin 0.3 AST 15 ALT 11 Alkaline Phosphatase 80 Troponin I High Sens 10.0 19.6 H* Total Protein 6.4 Albumin 4.1 Globulin 2.3 Albumin/Globulin Ratio 1.8 TSH 2.30 12/20/22 02:49 WBC RBC Hgb Hct MCV MCH MCHC RDW Plt Count MPV Neut # (Auto) Lymph # (Auto) [place] # (Auto) Eos # (Auto) Baso # (Auto) Absolute Nucleated RBC Nucleated RBC % Sodium Potassium Chloride Carbon Dioxide Anion Gap BUN Creatinine Estimated GFR (MDRD) Glucose Calcium Magnesium Total Bilirubin AST ALT Alkaline Phosphatase Troponin I High Sens 24.4 H* Total Protein Albumin Globulin Albumin/Globulin Ratio TSH PD Medical Decision Making - ED course Complexity details: reviewed results, re-evaluated patient, d/w patient, d/w family ED course: Patient is an 82-year-old female presenting for evaluation of palpitations along with feeling some chest heaviness. She was recently diagnosed with episodes of tachycardia. EMS EKG was reviewed and demonstrates A-fib with RVR. Patient spontaneously converted into a sinus rhythm prior to arrival in the emergency department. She has been symptom-free since. EKG here demonstrates a sinus rhythm that is nonischemic. CBC, chemistries, troponin were obtained and reviewed. Initial high-sensitivity troponin is within normal limits. Hypokalem ia of 2.9 which was replaced p.o. Chest x-ray is without acute findings.No ongoing symptoms to suggest pulmonary embolism. Repeat troponin is slightly increased to 19. I suspect this is related to demand from elevated heart rate earlier and opted for a third troponin which is not significantly changed. Patient has been symptom-free here and in sinus rhythm. Patient has recently had some episodes of lightheadedness and could be having periods of undetected atrial fibrillation. Therefore we did discuss anticoagulation given her [id number] 2 score. Patient's also has A-fib and he used to be on a blood thinner but has since had a Watchman procedure. Therefore she does have some understanding of how they work. Reviewed risks and benefits. Patient is still unsure whether she would like to take 1 but would like a prescription for Eliquis. She has an upcoming appointment with cardiology and understands importance of close follow-up with primary care. She is counseled on concerning symptoms to return for. Departure - Departure Disposition: 01 Home, Self Care Clinical Impression: Paroxysmal atrial fibrillation with rapid ventricular response, Hypokalemia Condition: Stable Instructions: ED Afib Prescriptions: Apixaban [Eliquis] 2.5 mg PO BID #60 tablet Comments: You were evaluated for an irregular heart rhythm called atrial fibrillation. Fortunately you went back into a regular rhythm without any intervention. On your labs today your potassium was low. Please make sure you are eating and staying hydrated. Your cardiac enzyme called troponin was slightly elevated w hich was likely related to stress from your fast heart rate earlier. This also does not appear to be in the range to suggest a heart attack. We have discussed the risks and benefits of a blood thinner and the concern that you may be having other episodes of atrial fibrillation that you may not be aware of. I have sent a prescription for Eliquis to [facility] in [place]. I would recommend close follow-up with your primary care provider as well as follow-up with a medicine teacher. Please return to the emergency department with any worsening symptoms. Forms: PCP List Discharge Date/Time: 12/20/22 03:55
[2022-12-19 23:54] LABS: BASOPHILS % (AUTO) 0.5 %; EOSINOPHILS # (AUTO) 0.1 10^3/uL (0.0-0.7); EOSINOPHILS % (AUTO) 2.8 %; HCT - HEMATOCRIT 35.2 % (37.0-47.0); HGB - HEMOGLOBIN 11.8 g/dL (12.0-16.0); LYMPHOCYTES # (AUTO) 1.2 10^3/uL (1.5-3.5); LYMPHOCYTES % (AUTO) 27.1 %; MEAN CORPUSCULAR HEMOGLOBIN 33.4 pg (27.0-31.0); MEAN CORPUSCULAR HGB CONC 33.5 g/dL (32.0-36.0); MEAN CORPUSCULAR VOLUME 99.7 fL (81.0-99.0); MEAN PLATELET VOLUME 8.8 fL (7.9-10.8); MONOCYTES # (AUTO) 0.6 10^3/uL (0.0-1.0); MONOCYTES % (AUTO) 14.1 %; NEUTROPHILS # (AUTO) 2.3 10^3/uL (1.5-6.6); PLT - PLATELET COUNT 215 10^3/uL (130-450); RED BLOOD COUNT 3.53 10^6/uL (4.20-5.40); RED CELL DISTRIBUTION WIDTH 12.1 % (12.0-15.0); WHITE BLOOD COUNT 4.3 x10^3/uL (4.8-10.8)
--- OUTSIDE RECORDS SUMMARY | 2022-12-19 23:54 | EXTERNAL MEDICAL SUMMARY RPT | Continuity of Care Document ---
Author Name Unknown Address [address] [place] [address] Phone Organization [facility] Address [address] [place] [address] Phone Care Team Providers Care Bull Float Finisher Name Role Phone Louisa Brito Unavailable Unavailable Allergies and Intolerances date description facility reaction severity 2022-09-21 15:15:47 [facility] (no reactio n) Moderate 2022-12-07 14:05:05 [facility] (no reactio n) Moderate Immunizations date description facility 2022-12-07 00:00 Fluzone High-Dose 65YR+ [facility] Medications date description facility 2022-12-07 00:00 Chlorthalidone [facility] 2022-09-21 00:00 Cholecalciferol (Vitamin D3) [facility] 2022-09-21 00:00 Calcium Carbonate [facility] 2022-09-21 00:00 Diltiazem Hcl [facility] 2022-09-21 00:00 Alendronate [facility] 2022-09-21 00:00 Bupropion Hcl [facility] 2022-11-17 00:00 Bupropion [facility] 2022-11-25 00:00 Bupropion [facility] Problems date description facility 2022-09-21 00:00 Supraventricular tachycardia [facility] 2022-09-21 00:00 Ventricular ectopic beats [facility] 2022-09-21 00:00 Capillary refill time greater t gtz 2 seconds [facility] 2022-09-21 00:00 [facility]:00 Unsteady gait [facility] 2022-09-21 00:00 Pre-syncope [facility] 2022-09-21 00:00 Edema of foot [facility] 2022-09-27 16:58 Vitamin B12 deficiency anemia, unspecified [facility] 2022-09-27 16:58 Anemia, unspecified [facility] 2022-09-27 16:58 Age-related osteopor osis without current pathological fractu [facility] 2022-09-27 16:58 Other terminologist (current) drug therapy [facility] Results/Labs test date facility value unit notes Social History date description facility 2022-09-21 00:00 Ex-smoker (finding) [facility] 2022-11-17 00:00 Ex-smoker (finding) [facility] 2022-12-07 00:00 Ex-smoker (finding) [facility] Vital Signs date measurement value units 2022-09-21 00:00 BMI 20.0 kg/m2 2022-09-21 00:00 BP_diastolic 84 mmHg 2022-09-21 00:00 BP_systolic 140 mmHg 2022-09-21 00:00 heart_rate 72 /min 2022-09-21 00:00 height_metric 157.48 cm 2022-09-21 00:00 height_standard 62 in 2022-09-21 00:00 o2_saturation 98 % 2022-09-21 00:00 weight_metric 49.61 kg 2022-09-21 00:00 weight_standard 109.37 lb 2022-11-17 00:00 BMI 20.7 kg/m2 2022-11-17 00:00 BP_diastolic 60 mmHg 2022-11-17 00:00 BP_systolic 130 mmHg 2022-11-17 00:00 heart_rate 66 /min 2022-11-17 00:00 height_metric 157.48 cm 2022-11-17 00:00 height_standard 62 in 2022-11-17 00:00 o2_saturation 99 % 2022-11-17 00:00 weight_metric 51.42 kg 2022-11-17 00:00 weight_standard 113.36 lb 2022-12-07 00:00 BMI 20.8 kg/m2 2022-12-07 00:00 BP_diastolic 76 mmHg 2022-12-07 00:00 BP_systolic 148 mmHg 2022-12-07 00:00 heart_rate 68 /min 2022-12-07 00:00 height_metric 157.48 cm 2022-12-07 00:00 height_standard 62 in 2022-12-07 00:00 o2_saturation 97 % 2022-12-07 00:00 weight_metric 51.7 kg 2022-12-07 00:00 weight_standard 113.98 lb
--- NOTE | 2022-12-20 00:02 | XRAY Report ---
PROCEDURE: Chest 1 View X-Ray INDICATIONS: palpitations TECHNIQUE: One view of the chest was acquired. COMPARISON: CT chest 12/09/2021, chest radiograph 03/24/2020 FINDINGS: Surgical changes and devices: None. Lungs and pleura: No pleural effusions or pneumothorax. No acute appearing airspace opacity identifi ed. Chronic appearing interstitial opacities present. Mediastinum: Mediastinal contours appear normal. Heart size is normal. Bones and chest wall: No suspicious bony lesions. Overlying soft tissues appear unremarkable. IMPRESSION: No acute cardiopulmonary process. Reviewed by: Chava Bah MD on 12/20/2022 12:01 AM PDT Approved by: Chava Bah MD on 12/20/2022 12:01 AM PDT Station ID: [id number]
[2022-12-20 00:06] LABS: ALBUMIN 4.1 g/dL (3.2-5.5); ALBUMIN/GLOBULIN RATIO 1.8 (1.0-2.2); BILIRUBIN,TOTAL 0.3 mg/dL (0.2-1.0); CALCIUM 9.7 mg/dL (8.5-10.3); POTASSIUM 2.9 mmol/L (3.5-4.5); TOTAL PROTEIN 6.4 g/dL (6.4-8.9)
[2022-12-20] MEDS ORDERED: POTASSIUM CHLORIDE 20 MEQ TABLET PO ONE (00:16)
[2022-12-20 00:22] LABS: THYROID STIMULATING HORMONE 2.3 uIU/mL (0.34-5.60)
[2022-12-20 02:51] VITALS: O2SAT 99
[2022-12-20 03:35] VITALS: BP 135/67
== END 2022-12-20 03:55 | disposition home or self-care (01) ==
LOC: EDUNIT# → ED 23:06
DX: I48.0 Paroxysmal atrial fibrillation (principal); E87.6 Hypokalemia
CPT/HCPCS: 36415; 71045; 80053; 83735; 84443; 84484; 85025; 93005; 96360; 99284; A9270